=== PATIENT | female | born 1985 | race Caucasian/White ===

== ENCOUNTER 2017-12-06 10:35 | Emergency (ER) | payer OTHER ==
--- NOTE | 2017-12-06 13:49 | RAD REPORT ---
EXAM DESCRIPTION: RAD - Chest Single View - 12/06/2017 1:41 pm CLINICAL HISTORY: Cough, bronchitis history, worsening shortness of breath COMPARISON: November 24 TECHNIQUE: AP portable chest image was obtained 1335 hours . FINDINGS: No focal consolidation, mass or failure finding. Lung markings are mildly prominent but no t clearly different from the prior study. Trachea is midline. Heart and vasculature are normal. No me asurable pleural effusion and no pneumothorax. No gross bony abnormality seen. No acute aortic findin gs suspected. IMPRESSION: Patient has mild chronic interstitial changes. Current exam shows no substantial change from November 24.
[2017-12-06] MEDS ORDERED: ALBUTEROL 2.5 MG/3 ML NEB SOL ONE (14:04)
[2017-12-06] MEDS ORDERED: IPRATROPIUM BROM 0.5MG/2.5ML ONE (14:04)
--- NOTE | 2017-12-06 16:10 | ER ---
Nurse's Notes [facility] Name: Josefa Maier Age: 32 yrs Sex: Female : 1985 Arrival Date: 12/06/2017 Time: 10:40 Bed 24 Private MD: Diagnosis: Acute bronchitis, unspecified Presentation: 12/06 10:56 Presenting complaint: Patient states: i came Sunday, was told i had bronchitis; was hj Rx with inhaler, just filled it today, now my is getting worse to the point i cant breathe and im getting light headed; report chills;. Transition of care: patient was not received from another setting of care. Onset of symptoms was December 06, 2017. Care prior to arrival: None. 10:56 Method Of Arrival: Ambulatory 10:56 Acuity: DEEPIKA 4 hj Triage Assessment: 10:58 General: Appears in no apparent distress. uncomfortable, Behavior is calm, cooperative, hj appropriate for age. 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 - Family history:: not pertinent. - Social history:: Smoking status: Patient uses tobacco products, denies chronic smoking, but will smoke occasionally. - Hospitalizations: : No recent hospitalization is reported. - History obtained from: significant other. Screenin:40 Abuse screen: Denies threats or abuse. Nutritional screening: No deficits noted. tl3 Tuberculosis screening: No symptoms or risk factors identified. Fall Risk None identified. Assessment: 13:40 General: Appears comfortable, well groomed, well developed, well nourished, Behavior is tl3 calm, cooperative, appropriate for age. Pain: Complains of pain in chest. Neuro: Level of Consciousness is alert, obeys commands, Oriented to person, place, time, situation, Appropriate for age. Cardiovascular: Heart tones S1 S2 present Capillary refill < 3 seconds in right in left fingers. Respiratory: Airway is patent Trachea midline Respiratory effort is even, unlabored, Breath sounds are coarse bilaterally. GI: No signs and/or symptoms were reported involving the gastrointestinal system. : No signs and/or symptoms were reported regarding the genitourinary system. EENT: Derm: No signs and/or symptoms reported regarding the dermatologic system. Musculoskeletal: No signs and/or symptoms reported regarding the musculoskeletal system. 15:20 Reassessment: Patient and/or family updated on plan of care and expected duration. Pain tl3 level reassessed. Patient is alert, oriented x 3, equal unlabored respirations, skin warm/dry/pink. Patient states symptoms have improved. fine expiratory wheeze to right side. 16:42 Reassessment: Patient appears in no apparent distress at this time. No changes from tl3 previously documented assessment. Patient and/or family updated on plan of care and expected duration. Pain level reassessed. Patient is alert, oriented x 3, equal unlabored respirations, skin warm/dry/pink. Vital Signs: 10:59 BP 102 / 70; Pulse 85; Resp 18; Temp 97.6(TE); Pulse Ox 94% on R/A; Weight 82.55 kg; hj Height 5 ft. 1 in. (154.94 cm); 13:40 BP 125 / 67; Pulse 95; Resp 18; Pulse Ox 96% ; tl3 15:20 BP 99 / 61; Pulse 86; Resp 18; Pulse Ox 98% ; tl3 16:42 BP 118 / 74; Pulse 68; Resp 16; Pulse Ox 97% on R/A; tl3 10:59 Body Mass Index 34.39 (82.55 kg, 154.94 cm) ED Course: 10:40 Patient arrived in ED. mr 10:58 Triage completed. hj 10:59 Arm band placed on right wrist. hj 13:03 Loraine Park FNP is PHCP. kav 13:03 Alberto Yoo MD is Attending Physician. kav 13:04 Toya Shearer, BECKI is Primary Nurse. tl3 13:40 Resting quietly. tl3 13:40 Patient has correct armband on for positive identification. Bed in low position. Call tl3 light in reach. Side rails up X 1. Pulse ox on. NIBP on. 13:40 No provider procedures requiring assistance completed. Patient did not have IV access tl3 during this emergency room visit. 13:43 CXR XRAY Sent. tl3 Administered Medications: 13:49 Drug: DuoNeb (3:1) (2.5 mg - 0.5 mg) 3 ml Route: Nebulizer; tl3 15:22 Follow up: Response: No adverse reaction; cough is more productive, fine expiratory tl3 wheeze noted to right side Intake: Outcome: 16:09 Discharge ordered by MD. hernandez 16:42 Discharged to home ambulatory. tl3 16:42 Condition: stable 16:42 Discharge instructions given to patient, Instructed on discharge instructions, follow up and referral plans. medication usage, Demonstrated understanding of instructions, follow-up care, medications, Prescriptions given X 2. 16:44 Patient left the ED. tl3 Signatures: Loraine Park FNP FNP kav Rivera, Maria mr Joaquin, Henry RN RN Toya Espana RN RN tl3 Corrections: (The following items were deleted from the chart) 11:01 10:56 Acuity: DEEPIKA 4 hj hj 11:01 10:59 Pulse 85bpm; Resp 18bpm; Pulse Ox 94% RA; Temp 97.6F Temporal; 82.55 kg; Height 5 hj ft. 1 in.; BMI: 34.3; hj 11:10 10:56 Acuity: DEEPIKA 3 hj hj
--- NOTE | 2017-12-06 16:10 | EDPHYS ---
Physician Documentation [facility] Name: Josefa Maier Age: 32 yrs Sex: Female : 1985 Arrival Date: 12/06/2017 Time: 10:40 Bed 24 Private MD: ED Physician Alberto Yoo HPI: 12/06 13:06 This 32 yrs old Female presents to ER via Ambulatory with complaints of Cough.kav 13:26 The patient or guardian reports cough, that is intermittent, described as moderate, kav with no sputum. Onset: The symptoms/episode began/occurred acutely, 6 day(s) ago. Severity of symptoms: At their worst the symptoms were moderate, just prior to arrival. Modifying factors: The symptoms are alleviated by inhaler, albuterol, the symptoms are aggravated by smoke. Associated signs and symptoms: The patient has no apparent associated signs or symptoms. The patient has experienced a previous episode, approximately 6 days ago. The patient has been recently seen at the [facility] Emergency Department, this week, for similar complaints. seen in this er approx 6 days ago for similar symptoms. given rx: albuterol inhaler. patient reports that "...she did not get her inhaler filled until today". she reports that her pcp had also given her an rx: albuterol inhaler and that she "...used the whole inhaler in 2 days because she had a bad cough". current every day smoker. 13:29 The patient has experienced a previous episode. The patient has been recently seen at critical access hospital the [facility] Emergency Department, for similar complaints X-rays were performed. 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 - Family history:: not pertinent. - Social history:: Smoking status: Patient uses tobacco products, denies chronic smoking, but will smoke occasionally. - Hospitalizations: : No recent hospitalization is reported. - History obtained from: significant other. ROS: 13:29 Constitutional: Negative for fever, chills, and weight loss, Eyes: Negative for injury, kav pain, redness, and discharge, ENT: Negative for injury, pain, and discharge, Neck: Negative for injury, pain, and swelling, Cardiovascular: Negative for chest pain, palpitations, and edema, Abdomen/GI: Negative for abdominal pain, nausea, vomiting, diarrhea, and constipation, Back: Negative for injury and pain, : Negative for injury, bleeding, discharge, and swelling, MS/Extremity: Negative for injury and deformity, Skin: Negative for injury, rash, and discoloration, Neuro: Negative for headache, weakness, numbness, tingling, and seizure, Psych: Negative for depression, anxiety, suicide ideation, homicidal ideation, and hallucinations, Allergy/Immunology: Negative for hives, rash, and allergies, Endocrine: Negative for neck swelling, polydipsia, polyuria, polyphagia, and marked weight changes, Hematologic/Lymphatic: Negative for swollen nodes, abnormal bleeding, and unusual bruising. 13:29 Respiratory: Positive for cough, with no reported sputum, wheezing. Exam: 13:29 Constitutional: This is a well developed, well nourished patient who is awake, alert, kav and in no acute distress. Head/Face: Normocephalic, atraumatic. Eyes: Pupils equal round and reactive to light, extra-ocular motions intact. Lids and lashes normal. Conjunctiva and sclera are non-icteric and not injected. Cornea within normal limits. Periorbital areas with no swelling, redness, or edema. ENT: Nares patent. No nasal discharge, no septal abnormalities noted. Tympanic membranes are normal and external auditory canals are clear. Oropharynx with no redness, swelling, or masses, exudates, or evidence of obstruction, uvula midline. Mucous membranes moist. Neck: Trachea midline, no thyromegaly or masses palpated, and no cervical lymphadenopathy. Supple, full range of motion without nuchal rigidity, or vertebral point tenderness. No Meningismus. Chest/axilla: Normal chest wall appearance and motion. Nontender with no deformity. No lesions are appreciated. Cardiovascular: Regular rate and rhythm with a normal S1 and S2. No gallops, murmurs, or rubs. Normal PMI, no JVD. No pulse deficits. Abdomen/GI: Soft, non-tender, with normal bowel sounds. No distension or tympany. No guarding or rebound. No evidence of tenderness throughout. Back: No spinal tenderness. No costovertebral tenderness. Full range of motion. Skin: Warm, dry with normal turgor. Normal color with no rashes, no lesions, and no evidence of cellulitis. MS/ Extremity: Pulses equal, no cyanosis. Neurovascular intact. Full, normal range of motion. Neuro: Awake and alert, GCS 15, oriented to person, place, time, and situation. Cranial nerves II-XII grossly intact. Motor strength 5/5 in all extremities. Sensory grossly intact. Cerebellar exam normal. Normal gait. Psych: Awake, alert, with orientation to person, place and time. Behavior, mood, and affect are within normal limits. 13:29 Respiratory: the patient does not display signs of respiratory distress, Respirations: normal, Breath sounds: wheezing: expiratory that is mild, is scattered. Vital Signs: 10:59 BP 102 / 70; Pulse 85; Resp 18; Temp 97.6(TE); Pulse Ox 94% on R/A; Weight 82.55 kg; hj Height 5 ft. 1 in. (154.94 cm); 13:40 BP 125 / 67; Pulse 95; Resp 18; Pulse Ox 96% ; tl3 15:20 BP 99 / 61; Pulse 86; Resp 18; Pulse Ox 98% ; tl3 16:42 BP 118 / 74; Pulse 68; Resp 16; Pulse Ox 97% on R/A; tl3 10:59 Body Mass Index 34.39 (82.55 kg, 154.94 cm) MDM: 13:03 Patient medically screened. kav 16:08 Data reviewed: vital signs, nurses notes, radiologic studies. ED course: improvement kav with breathing after duoneb treatment. 12/06 13:25 Order name: CXR XRAY kav 12/06 13:50 Order name: RAD; Complete Time: 16:24 EDMS 12/06 16:24 Interpretation: No acute disease. kav Administered Medications: 13:49 Drug: DuoNeb (3:1) (2.5 mg - 0.5 mg) 3 ml Route: Nebulizer; tl3 15:22 Follow up: Response: No adverse reaction; cough is more productive, fine expiratory tl3 wheeze noted to right side Disposition: 21:39 Co-signature as Attending Physician, Alberto Yoo MD I agree with the assessment and kdr plan of care. Disposition: 12/06/17 16:09 Discharged to Home. Impression: Acute bronchitis, unspecified. - Condition is Stable. - Discharge Instructions: Acute Bronchitis, [id number]. - Prescriptions for Zithromax Z- Nic 250 mg Oral Tablet - take 1 tablet by ORAL route as directed for 5 days Day 1 - take two (2) tablets one time. Day 2, 3, 4 , 5 take one (1) tablet once daily.; 6 tablet. Medrol (Nic) 4 mg Oral Tablets, Dose Pack - take 1 tablet by ORAL route as directed - follow package instructions; 1 packet. - Medication Reconciliation Form, Thank You Letter, Antibiotic Education, Prescription Opioid Use form. - Follow up: Private Physician; When: 1 - 2 days; Reason: If symptoms return. - Problem is new. - Symptoms have improved. - Notes: please pick up driver your prescription and take the medication as directed follow- up with pulmonology Signatures: Dispatcher [employer] [facility] Alberto Yoo MD MD kdr Vern, Katherine, SPECIAL EQUIPMENT TECHNICIAN SPECIAL EQUIPMENT TECHNICIAN Aayush Singh, RN RN Toya Shearer, RN RN tl3
[2017-12-06 16:48] VITALS: TEMP 97.6
[2017-12-06 16:52] VITALS: BP 118/74; O2SAT 97
== END 2017-12-06 16:44 | disposition home or self-care (01) ==
LOC: ER 10:35
DX: F41.8 Other specified anxiety disorders; J20.9 Acute bronchitis, unspecified
CPT/HCPCS: 71045; 94640; 99284

== ENCOUNTER 2018-01-29 19:48 | Emergency (ER) | payer OTHER ==
[2018-01-29] MEDS ORDERED: KETOROLAC 30 MG/ML INJ ONE (21:19)
[2018-01-29] MEDS ORDERED: ONDANSETRON 4 MG (ODT) TAB ONE (21:19)
--- NOTE | 2018-01-29 21:32 | ER ---
Nurse's Notes [facility] Name: Josefa Maier Age: 32 yrs Sex: Female : 1985 Arrival Date: 01/29/2018 Time: 19:52 Bed 4 Private MD: Diagnosis: Headache Presentation: 01/29 20:08 Presenting complaint: Patient states: headache X2 days with nausea. Transition of care: ak1 patient was not received from another setting of care. Onset of symptoms was January 28, 2018. Initial Sepsis Screen: Does the patient meet any 2 criteria? No. Patient's initial sepsis screen is negative. Does the patient have a suspected source of infection? No. Patient's initial sepsis screen is negative. Care prior to arrival: None. 20:08 Method Of Arrival: Ambulatory ak1 20:08 Acuity: DEEPIKA 4 ak1 Triage Assessment: 20:09 Neuro: Level of Consciousness is awake, alert, obeys commands, Oriented to person, ak1 place, time, situation, Cabin Crew are equal bilaterally Moves all extremities. Gait is steady, Speech is normal, Facial symmetry appears normal. 20:34 Pain: Pain at worst was 10 out of 10 on a pain scale. Also complains of nausea. jd3 20:34 Headache History: Denies prior headaches. General: Appears in no apparent distress. jd3 uncomfortable, Behavior is calm, cooperative, appropriate for age. 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 - Social history:: Smoking status: Patient uses tobacco products, smokes one-half pack cigarettes per day. Screenin:34 Abuse screen: Denies threats or abuse. Nutritional screening: No deficits noted. jd3 Tuberculosis screening: No symptoms or risk factors identified. Fall Risk None identified. Assessment: 20:30 General: Appears in no apparent distress. uncomfortable, Behavior is calm, cooperative, jd3 appropriate for age. Pain: Complains of pain in head and back Quality of pain is described as aching, pressure, Pain began 2-3 days ago. Neuro: Level of Consciousness is awake, alert, obeys commands, Oriented to person, place, time, situation, Moves all extremities. Gait is steady, Speech is normal, Pupils are PERRLA. Cardiovascular: Heart tones S1 S2 present Capillary refill < 3 seconds Patient's skin is warm and dry. Respiratory: Airway is patent Respiratory effort is even, unlabored, Respiratory pattern is regular, symmetrical, Breath sounds are clear bilaterally. GI: Abdomen is round Bowel sounds present X 4 quads. Abd is soft and non tender X 4 quads. : No signs and/or symptoms were reported regarding the genitourinary system. EENT: No signs and/or symptoms were reported regarding the EENT system. Derm: Skin is intact, Skin is dry, Skin is normal, Skin temperature is warm. Musculoskeletal: Circulation, motion, and sensation intact. Range of motion: intact in all extremities. 21:57 Reassessment: Patient appears in no apparent distress at this time. Patient and/or jd3 family updated on plan of care and expected duration. Pain level reassessed. Patient is alert, oriented x 3, equal unlabored respirations, skin warm/dry/pink. pt reported understanding of discharge instructions, even and steady gait upon discharge. Patient states feeling better. Vital Signs: 20:09 BP 128 / 79; Pulse 91; Resp 16; Temp 98.2; Pulse Ox 96% on R/A; Weight 83.46 kg (R); ak1 Height 5 ft. 1 in. (154.94 cm) (R); Pain 10/10; 21:56 BP 129 / 97; Pulse 98; Resp 17 S; Pulse Ox 97% on R/A; Pain 5/10; jd3 20:09 Body Mass Index 34.77 (83.46 kg, 154.94 cm) ak1 ED Course: 19:52 Patient arrived in ED. es 20:08 Triage completed. ak1 20:09 Arm band placed on Patient placed in an exam room, on a stretcher, Patient notified of ak1 wait time. 20:12 Americo Serna RN is Primary Nurse. mg2 20:23 Enrique Hobbs MD is Attending Physician. gs 20:30 Primary Nurse role handed off by Americo Serna RN jd3 20:30 Yonathan Lowry, RN is Primary Nurse. jd3 20:34 Patient has correct armband on for positive identification. Bed in low position. Call jd3 light in reach. Side rails up X2. 21:32 Uriel Marie MD is Referral Physician. 21:55 No provider procedures requiring assistance completed. Patient did not have IV access jd3 during this emergency room visit. Administered Medications: 21:24 Drug: Zofran 4 mg Route: PO; mg2 21:58 Follow up: Response: No adverse reaction; Nausea is decreased jd3 21:25 Drug: TORadol 30 mg Route: IM; Site: left gluteus; mg2 21:58 Follow up: Response: Pain is decreased jd3 Outcome: 21:32 Discharge ordered by . 21:55 Discharged to home ambulatory, with family. jd3 21:55 Condition: stable 21:55 Discharge instructions given to patient, family, Instructed on discharge instructions, follow up and referral plans. medication usage, Demonstrated understanding of instructions, follow-up care, medications, Prescriptions given X 1. 21:58 Patient left the ED. jd3 Signatures: Leticia Howe Amber RN RN ak1 Enrique Hobbs MD MD Yonathan Lowry RN RN jd3 Americo Serna RN RN mg2 Corrections: (The following items were deleted from the chart) 20:35 20:34 Pain: Pain jd3 jd3
--- NOTE | 2018-01-29 21:33 | EDPHYS ---
Physician Documentation [facility] Name: Josefa Maier Age: 32 yrs Sex: Female : 1985 Arrival Date: 01/29/2018 Time: 19:52 Bed 4 Private MD: ED Physician Enrique Hobbs HPI: 01/29 21:30 This 32 yrs old Female presents to ER via Ambulatory with complaints of gs Headache, Nausea. 21:30 The patient complains of pain to the forehead. The patient describes the headache as gs throbbing. Onset: The symptoms/episode began/occurred 2 day(s) ago. Associated signs and symptoms: Pertinent positives: nausea, Pertinent negatives: altered mental status. Severity of symptoms: At its worst the pain was moderate, in the emergency department the pain has improved, markedly. Headache History: The patient has had previous headaches and this one is similar to previous episodes, and this one is less severe than previous episodes. The symptoms are alleviated by nothing. the symptoms are aggravated by nothing. The patient has experienced similar episodes in the past, a few times. The patient has not recently seen a physician. 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 - Social history:: Smoking status: Patient uses tobacco products, smokes one-half pack cigarettes per day. ROS: 21:30 All other systems are negative. gs Exam: 21:30 Head/Face: Normocephalic, atraumatic. Eyes: Pupils equal round and reactive to light, gs extra-ocular motions intact. Lids and lashes normal. Conjunctiva and sclera are non-icteric and not injected. Cornea within normal limits. Periorbital areas with no swelling, redness, or edema. ENT: Nares patent. No nasal discharge, no septal abnormalities noted. Tympanic membranes are normal and external auditory canals are clear. Oropharynx with no redness, swelling, or masses, exudates, or evidence of obstruction, uvula midline. Mucous membranes moist. Neck: Trachea midline, no thyromegaly or masses palpated, and no cervical lymphadenopathy. Supple, full range of motion without nuchal rigidity, or vertebral point tenderness. No Meningismus. Chest/axilla: Normal chest wall appearance and motion. Nontender with no deformity. No lesions are appreciated. Cardiovascular: Regular rate and rhythm with a normal S1 and S2. No gallops, murmurs, or rubs. Normal PMI, no JVD. No pulse deficits. Respiratory: Lungs have equal breath sounds bilaterally, clear to auscultation and percussion. No rales, rhonchi or wheezes noted. No increased work of breathing, no retractions or nasal flaring. Abdomen/GI: Soft, non-tender, with normal bowel sounds. No distension or tympany. No guarding or rebound. No evidence of tenderness throughout. Back: No spinal tenderness. No costovertebral tenderness. Full range of motion. Skin: Warm, dry with normal turgor. Normal color with no rashes, no lesions, and no evidence of cellulitis. MS/ Extremity: Pulses equal, no cyanosis. Neurovascular intact. Full, normal range of motion. Neuro: Awake and alert, GCS 15, oriented to person, place, time, and situation. Cranial nerves II-XII grossly intact. Motor strength 5/5 in all extremities. Sensory grossly intact. Cerebellar exam normal. Normal gait. 21:30 Constitutional: The patient appears alert, awake. Vital Signs: 20:09 BP 128 / 79; Pulse 91; Resp 16; Temp 98.2; Pulse Ox 96% on R/A; Weight 83.46 kg (R); ak1 Height 5 ft. 1 in. (154.94 cm) (R); Pain 10/10; 21:56 BP 129 / 97; Pulse 98; Resp 17 S; Pulse Ox 97% on R/A; Pain 5/10; jd3 20:09 Body Mass Index 34.77 (83.46 kg, 154.94 cm) ak1 MDM: 20:45 Patient medically screened. 21:30 Differential diagnosis: migraine, tension headache, vasomotor headache. Data reviewed: vital signs, nurses notes. Response to treatment: the patient's symptoms have markedly improved after treatment, the patient's symptoms have resolved after treatment, and as a result, I will discharge patient. Administered Medications: 21:24 Drug: Zofran 4 mg Route: PO; mg2 21:58 Follow up: Response: No adverse reaction; Nausea is decreased jd3 21:25 Drug: TORadol 30 mg Route: IM; Site: left gluteus; mg2 21:58 Follow up: Response: Pain is decreased jd3 Disposition: 01/29/18 21:32 Discharged to Home. Impression: Headache. - Condition is Stable. - Discharge Instructions: General Headache Without Cause. - Prescriptions for Zofran 4 mg Oral Tablet - take 1 tablet by ORAL route every 12 hours As needed; 6 tablet. - Medication Reconciliation Form, Thank You Letter, Antibiotic Education, Prescription Opioid Use form. - Follow up: Private Physician; When: 2 - 3 days; Reason: Recheck today's complaints, Re-evaluation by your physician. Follow up: Uriel Marie MD; When: 2 - 3 days; Reason: Re-evaluation by your physician. Signatures: Estefania Sam RN RN ak1 Enrique Hobbs MD MD gs Yonathan Lowry RN RN jd3 Americo Serna RN RN mg2 Corrections: (The following items were deleted from the chart) 21:58 21:32 01/29/2018 21:32 Discharged to Home. Impression: Headache. Condition is Stable. jd3 Forms are Medication Reconciliation Form, Thank You Letter, Antibiotic Education, Prescription Opioid Use. Follow up: Private Physician; When: 2 - 3 days; Reason: Recheck today's complaints, Re-evaluation by your physician. Follow up: Uriel Marie; When: 2 - 3 days; Reason: Re-evaluation by your physician.
[2018-01-29 22:12] VITALS: BP 129/97; O2SAT 97
[2018-01-29 22:14] VITALS: TEMP 98.2
== END 2018-01-29 21:58 | disposition home or self-care (01) ==
LOC: ER 19:48
DX: R51 Headache (principal); F17.210 Nicotine dependence, cigarettes, uncomplicated; F41.9 Anxiety disorder, unspecified; F32.9 Major depressive disorder, single episode, unspecified
CPT/HCPCS: 96372; 99283

== ENCOUNTER 2018-03-05 15:11 | Emergency (ER) | payer OTHER ==
--- NOTE | 2018-03-05 16:11 | RAD REPORT ---
EXAM DESCRIPTION: RAD - Hand Right 3 View - 03/05/2018 4:06 pm CLINICAL HISTORY: Right hand pain following blunt force trauma COMPARISON: None. FINDINGS: No fracture is identified. There is no dislocation or periosteal reaction noted. No forei gn body or other soft tissue abnormality. IMPRESSION: Negative right hand examination.
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
[2018-03-05 17:32] VITALS: BP 123/59; TEMP 97.9; O2SAT 99
== END 2018-03-05 16:57 | disposition home or self-care (01) ==
LOC: ER 15:11
DX: S60.221A Contusion of right hand, initial encounter (principal); J45.909 Unspecified asthma, uncomplicated; E78.5 Hyperlipidemia, unspecified; W22.01XA Walked into wall, initial encounter; Y93.89 Activity, other specified; Y92.9 Unspecified place or not applicable; Y99.9 Unspecified external cause status
CPT/HCPCS: 99283

== ENCOUNTER 2018-07-02 15:42 | Emergency (ER) | payer OTHER ==
[2018-07-02] MEDS ORDERED: LIDOCAINE 1% MPF 30 ML VIAL ONE (16:17)
[2018-07-02] MEDS ORDERED: LIDOCAINE 1% MPF 2 ML AMPULE ONE (16:20)
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
[2018-07-02 17:09] VITALS: BP 137/69
== END 2018-07-02 16:54 | disposition home or self-care (01) ==
LOC: ER 15:42
PROC: 0JQ10ZZ Repair Face Subcutaneous Tissue and Fascia, Open Approach (ICD-10-PCS; principal; 2018-07-02)
DX: S01.81XA Laceration without foreign body of other part of head, initial encounter (principal); Y04.8XXA Assault by other bodily force, initial encounter; Y93.89 Activity, other specified; Y92.9 Unspecified place or not applicable; F31.9 Bipolar disorder, unspecified; F41.9 Anxiety disorder, unspecified; F32.9 Major depressive disorder, single episode, unspecified
CPT/HCPCS: 99284; J2001

== ENCOUNTER 2018-07-08 12:54 | Emergency (ER) | payer OTHER ==
--- NOTE | 2018-07-08 13:21 | ER ---
Nurse's Notes [facility] Name: Josefa Maier Age: 33 yrs Sex: Female : 1985 Arrival Date: 07/08/2018 Time: 12:58 Bed 24 Private MD: BRISEIDA GUZMAN Diagnosis: Encounter for removal of sutures Presentation: 07/08 13:01 Presenting complaint: Patient states: Needs sutures removed. Pt reports she has sutures aa5 placed here on Sunday. Transition of care: patient was not received from another setting of care. Onset of symptoms was June 2018. Risk Assessment: Do you want to hurt yourself or someone else? Patient reports no desire to harm self or others. Initial Sepsis Screen: Does the patient meet any 2 criteria? No. Patient's initial sepsis screen is negative. Does the patient have a suspected source of infection? No. Patient's initial sepsis screen is negative. Care prior to arrival: None. 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 - Social history:: Smoking status: Patient/guardian denies using tobacco. - Ebola Screening: : No symptoms or risks identified at this time. Screenin:12 Abuse screen: Denies threats or abuse. Denies injuries from another. Nutritional ss screening: No deficits noted. Tuberculosis screening: Never had TB. Fall Risk None identified. Assessment: 13:12 General: Appears in no apparent distress. comfortable, Behavior is calm, cooperative, ss Denies fever, feeling ill, fatigue, chills. Pain: Denies pain. Neuro: Level of Consciousness is awake, alert, obeys commands, Oriented to person, place, time, situation. Respiratory: Airway is patent Respiratory effort is even, unlabored, Respiratory pattern is regular, symmetrical. GI: No signs and/or symptoms were reported involving the gastrointestinal system. Derm: Skin is pink, warm \T\ dry. 5 sutures noted to R medial aspect of eyebrow. Edges healing well. No redness, swelling or drainage noted. Vital Signs: 13:03 BP 143 / 68; Pulse 71; Resp 16 S; Temp 97.6(TE); Pulse Ox 98% on R/A; Weight 83.46 kg aa5 (R); Height 5 ft. 1 in. (154.94 cm) (R); 13:03 Body Mass Index 34.77 (83.46 kg, 154.94 cm) aa ED Course: 12:58 Patient arrived in ED. mr 12:59 BRISEIDA GUZMAN is Private Physician. mr 13:00 [facility] Balderr[facility]C [facility]. snw 13:00 Juaquin Bundy MD is Attending Physician. snw 13:03 Triage completed. aa5 13:03 Arm band placed on. aa5 13:12 Carmen He RN is Primary Nurse. ss 13:12 Patient has correct armband on for positive identification. Bed in low position. Call ss light in reach. Side rails up X 1. 13:14 No provider procedures requiring assistance completed. Patient did not have IV access ss during this emergency room visit. Removal of Removed sutures from inner aspect of right eyebrow Suture site is well healed Patient tolerated well. 13:20 BRISEIDA GUZMAN is Referral Physician. snw Administered Medications: No medications were administered Outcome: 13:14 Condition: good ss 13:14 Discharge instructions given to patient, family, Instructed on discharge instructions, follow up and referral plans. wound care. 13:21 Discharge ordered by . snw 13:35 Discharged to home ambulatory, with family. ss 13:36 Patient left the ED. ss Signatures: Jalyn Balderrama FNP-C FNP-Philomena Rosey DawsonAna RN RN aa Carmen He RN RN ss
--- NOTE | 2018-07-08 13:21 | EDPHYS ---
Physician Documentation [facility] Name: Josefa Maier Age: 33 yrs Sex: Female : 1985 Arrival Date: 07/08/2018 Time: 12:58 Bed 24 Private MD: BRISEIDA GUZMAN ED Physician Juaquin Bundy HPI: 07/08 13:50 This 33 yrs old Female presents to ER via Ambulatory with complaints of snw Suture Removal. 13:50 The patient has sutures on the inner aspect of right eyebrow. Previous treatment: snw Treatment type: The patient's original treatment included sutures. Sutures/maria antonia progress: The patient has no c/o's. The wound is well-healing with no redness, swelling, discharge, or dehiscence reported. The patient has not experienced similar symptoms in the past. The patient has been recently seen at the [facility] Emergency Department, last week. no fever. 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 - Social history:: Smoking status: Patient/guardian denies using tobacco. - Ebola Screening: : No symptoms or risks identified at this time. ROS: 13:48 Constitutional: Negative for fever, chills, and weight loss, Eyes: Negative for injury, snw pain, redness, and discharge, ENT: Negative for injury, pain, and discharge, Neck: Negative for injury, pain, and swelling, Cardiovascular: Negative for chest pain, palpitations, and edema, Respiratory: Negative for shortness of breath, cough, wheezing, and pleuritic chest pain, Abdomen/GI: Negative for abdominal pain, nausea, vomiting, diarrhea, and constipation, Back: Negative for injury and pain, : Negative for injury, bleeding, discharge, and swelling, MS/Extremity: Negative for injury and deformity, Neuro: Negative for headache, weakness, numbness, tingling, and seizure, Psych: Negative for depression, anxiety, suicide ideation, homicidal ideation, and hallucinations. 13:48 Skin: Positive for need for suture removal. Exam: 13:48 Constitutional: This is a well developed, well nourished patient who is awake, alert, snw and in no acute distress. Eyes: Pupils equal round and reactive to light, extra-ocular motions intact. Lids and lashes normal. Conjunctiva and sclera are non-icteric and not injected. Cornea within normal limits. Periorbital areas with no swelling, redness, or edema. ENT: Nares patent. No nasal discharge, no septal abnormalities noted. Tympanic membranes are normal and external auditory canals are clear. Oropharynx with no redness, swelling, or masses, exudates, or evidence of obstruction, uvula midline. Mucous membranes moist. Neck: Trachea midline, no thyromegaly or masses palpated, and no cervical lymphadenopathy. Supple, full range of motion without nuchal rigidity, or vertebral point tenderness. No Meningismus. Chest/axilla: Normal chest wall appearance and motion. Nontender with no deformity. No lesions are appreciated. Cardiovascular: Regular rate and rhythm with a normal S1 and S2. No gallops, murmurs, or rubs. Normal PMI, no JVD. No pulse deficits. Respiratory: Lungs have equal breath sounds bilaterally, clear to auscultation and percussion. No rales, rhonchi or wheezes noted. No increased work of breathing, no retractions or nasal flaring. Abdomen/GI: Soft, non-tender, with normal bowel sounds. No distension or tympany. No guarding or rebound. No evidence of tenderness throughout. Back: No spinal tenderness. No costovertebral tenderness. Full range of motion. Skin: Warm, dry with normal turgor. Normal color with no rashes, no lesions, and no evidence of cellulitis. MS/ Extremity: Pulses equal, no cyanosis. Neurovascular intact. Full, normal range of motion. Neuro: Awake and alert, GCS 15, oriented to person, place, time, and situation. Cranial nerves II-XII grossly intact. Motor strength 5/5 in all extremities. Sensory grossly intact. Cerebellar exam normal. Normal gait. Psych: Awake, alert, with orientation to person, place and time. Behavior, mood, and affect are within normal limits. 13:48 Head/face: Noted is no obvious of injury or deformity except intact sutures over well approximated laceration without evidence of infection, mild ecchymosis to right upper eyelid. Vital Signs: 13:03 BP 143 / 68; Pulse 71; Resp 16 S; Temp 97.6(TE); Pulse Ox 98% on R/A; Weight 83.46 kg aa5 (R); Height 5 ft. 1 in. (154.94 cm) (R); 13:03 Body Mass Index 34.77 (83.46 kg, 154.94 cm) aa5 MDM: 13:19 Patient medically screened. [facility] 13:50 Data reviewed: vital signs, nurses notes. Data interpreted: Pulse oximetry: on room air snw is 98 %. Interpretation: normal. Counseling: I had a detailed discussion with the patient and/or guardian regarding: the historical points, exam findings, and any diagnostic results supporting the discharge/admit diagnosis, the presence of at least one elevated blood pressure reading (>120/80) during this emergency department visit, the need for outpatient follow up, to return to the emergency department if symptoms worsen or persist or if there are any questions or concerns that arise at home. Special discussion: Based on the patient's history, exam and DX evaluation, there is no indication for emergent intervention or inpatient TX. It is understood by the patient/guardian that if the SXs persist or worsen they need to return immediately for re-evaluation. Based on the history and exam findings, there is no indication for further emergent testing or inpatient evaluation. I discussed with the patient/guardian the need to see the primary care provider for further evaluation of the symptoms. Administered Medications: No medications were administered Disposition: 17:56 Co-signature as Attending Physician, Juaquin Bundy MD I agree with the assessment and [facility] plan of care. Disposition: 07/08/18 13:21 Discharged to Home. Impression: Encounter for removal of sutures. - Condition is Stable. - Discharge Instructions: Hypertension, Suture Removal, Care After, Incision Care, Adult. - Medication Reconciliation Form, Thank You Letter, Antibiotic Education, Prescription Opioid Use form. - Follow up: BRISEIDA GUZMAN; When: 1 week; Reason: Recheck today's complaints, Continuance of care, Re-evaluation by your physician. Signatures: Juaquin Bundy MD MD cha Therrien, Shelly, MANAGER APPLICATION DEVELOPMENT-C MANAGER APPLICATION DEVELOPMENT-Csnw Ana Calix RN RN aa5 Carmen He RN RN ss Corrections: (The following items were deleted from the chart) 13:36 13:21 07/08/2018 13:21 Discharged to Home. Impression: Encounter for removal of ss sutures. Condition is Stable. Forms are Medication Reconciliation Form, Thank You Letter, Antibiotic Education, Prescription Opioid Use. Follow up: BRISEIDA GUZMAN; When: 1 week; Reason: Recheck today's complaints, Continuance of care, Re-evaluation by your physician. snw
[2018-07-08 13:47] VITALS: BP 143/68; TEMP 97.6; O2SAT 98
== END 2018-07-08 13:36 | disposition home or self-care (01) ==
LOC: ER 12:54
DX: Z48.02 Encounter for removal of sutures (principal)
CPT/HCPCS: 99281

== ENCOUNTER 2018-09-04 23:36 | Emergency (ER) | payer OTHER ==
[2018-09-05 01:04] LABS: Absolute Monocytes 0.4 K/uL (0.1-1.3); Absolute Neutrophil 4.1 K/uL (1.8-8.0); Basophils % 0.6 % (0-1.3); Eosinophils % 3.5 % (0-4.4); Hematocrit 40.8 % (36.0-45.0); Lymphocytes % 29.5 % (15.3-44.8); MPV 9.5 fL (7.6-11.3); Monocytes % 6.6 % (3.3-12.3); RBC Red Blood Cell Count 4.63 M/uL (3.86-4.86)
[2018-09-05] MEDS ORDERED: NA CHLORIDE 0.9% 500 ML ONE (01:11)
[2018-09-05] MEDS ORDERED: MAGNE/ALUM HYDROXD 30 ML UCUP ONE (01:11)
[2018-09-05] MEDS ORDERED: LIDOCAINE VISCOUS 2% SOLN 15 ML UDC ONE (01:11)
[2018-09-05] MEDS ORDERED: ONDANSETRON 4 MG/2 ML VIAL ONE (01:11)
[2018-09-05 01:24] LABS: ALT/SGPT 26 U/L (12-78); AST/SGOT 17 U/L (15-37); Albumin 3.7 g/dL (3.4-5.0); Alkaline Phosphatase 52 U/L (45-117); BUN Blood Urea Nitrogen 10 mg/dL (7-18); Bicarbonate 22 mmol/L (21-32); Bilirubin Direct < 0.1 mg/dL (0-0.2); Bilirubin Total 0.2 mg/dL (0.2-1.0); Glucose Level 95 mg/dL (74-106); Lipase 71 U/L (73-393); Potassium 3.8 mmol/L (3.5-5.1); Protein, Total 7.5 g/dL (6.4-8.2); Sodium Level 141 mmol/L (136-145)
--- NOTE | 2018-09-05 01:59 | EDPHYS ---
Physician Documentation [facility] Name: Josefa Maier Age: 33 yrs Sex: Female : 1985 Arrival Date: 09/04/2018 Time: 23:40 Bed 6 Private MD: ED Physician Juaquin Bundy HPI: 09/05 01:56 This 33 yrs old Female presents to ER via EMS with complaints of Gerd, jr8 nausea, diarrhea. 01:56 The patient presents to the emergency department with nausea, diarrhea. Onset: The jr8 symptoms/episode began/occurred gradually, 2 day(s) ago. Possible causes: unknown. The symptoms are aggravated by nothing. The symptoms are alleviated by nothing. Associated signs and symptoms: Pertinent positives: acid reflux. Severity of symptoms: At their worst the symptoms were moderate in the emergency department the symptoms are unchanged. The patient has not experienced similar symptoms in the past. The patient has not recently seen a physician. Historical: - Allergies: 09/04 23:52 NKA; rv - Home Meds: 23:52 fluoxetine 40 mg Oral cap [Active]; Singulair Oral [Active]; Xanax 1 mg Oral tab rv [Active]; Zyrtec Oral [Active]; - PMHx: 23:52 Anxiety; Asthma; Bipolar disorder; Depression; Hyperlipidemia; rv - Immunization history:: Adult Immunizations not up to date. - Social history:: Smoking status: Patient uses tobacco products, denies chronic smoking, but will smoke occasionally. - Ebola Screening: : Patient negative for fever greater than or equal to 101.5 degrees Fahrenheit, and additional compatible Ebola Virus Disease symptoms Patient denies exposure to infectious person Patient denies travel to an Ebola-affected area in the 21 days before illness onset. ROS: 09/05 01:56 Eyes: Negative for injury, pain, redness, and discharge, ENT: Negative for injury, jr8 pain, and discharge, Neck: Negative for injury, pain, and swelling, Cardiovascular: Negative for chest pain, palpitations, and edema, Respiratory: Negative for shortness of breath, cough, wheezing, and pleuritic chest pain, Back: Negative for injury and pain, MS/Extremity: Negative for injury and deformity, Skin: Negative for injury, rash, and discoloration, Neuro: Negative for headache, weakness, numbness, tingling, and seizure. Abdomen/GI: Positive for nausea, diarrhea, abdominal cramps, Negative for abdominal pain, vomiting, abdominal distension, anorexia, dysphagia, hematemesis, black/tarry stool, rectal pain, rectal bleeding, bowel incontinence, flatulence. Exam: 01:56 Eyes: Pupils equal round and reactive to light, extra-ocular motions intact. Lids and jr8 lashes normal. Conjunctiva and sclera are non-icteric and not injected. Cornea within normal limits. Periorbital areas with no swelling, redness, or edema. ENT: Nares patent. No nasal discharge, no septal abnormalities noted. Tympanic membranes are normal and external auditory canals are clear. Oropharynx with no redness, swelling, or masses, exudates, or evidence of obstruction, uvula midline. Mucous membranes moist. Neck: Trachea midline, no thyromegaly or masses palpated, and no cervical lymphadenopathy. Supple, full range of motion without nuchal rigidity, or vertebral point tenderness. No Meningismus. Cardiovascular: Regular rate and rhythm with a normal S1 and S2. No gallops, murmurs, or rubs. Normal PMI, no JVD. No pulse deficits. Respiratory: Lungs have equal breath sounds bilaterally, clear to auscultation and percussion. No rales, rhonchi or wheezes noted. No increased work of breathing, no retractions or nasal flaring. Abdomen/GI: Soft, non-tender, with normal bowel sounds. No distension or tympany. No guarding or rebound. No evidence of tenderness throughout. Back: No spinal tenderness. No costovertebral tenderness. Full range of motion. Skin: Warm, dry with normal turgor. Normal color with no rashes, no lesions, and no evidence of cellulitis. MS/ Extremity: Pulses equal, no cyanosis. Neurovascular intact. Full, normal range of motion. Neuro: Awake and alert, GCS 15, oriented to person, place, time, and situation. Cranial nerves II-XII grossly intact. Motor strength 5/5 in all extremities. Sensory grossly intact. Cerebellar exam normal. Normal gait. Vital Signs: 09/04 23:52 Pulse 73; Resp 16; Temp 97.8; Pulse Ox 100% on R/A; Weight 81.19 kg (R); rv 09/05 01:25 BP 116 / 66; Pulse 82; Resp 18; Pulse Ox 100% ; ea 02:14 BP 109 / 60; Pulse 90; Resp 20; Pulse Ox 100% on R/A; lp1 MDM: 00:00 Patient medically screened. jr8 01:56 Data reviewed: vital signs, nurses notes, lab test result(s), EKG. Data interpreted: jr8 Pulse oximetry: on room air is 100 %. Interpretation: normal. Counseling: I had a detailed discussion with the patient and/or guardian regarding: the historical points, exam findings, and any diagnostic results supporting the discharge/admit diagnosis, lab results, the need for outpatient follow up, a family practitioner, to return to the emergency department if symptoms worsen or persist or if there are any questions or concerns that arise at home. Response to treatment: the patient's symptoms have markedly improved after treatment, patient is well hydrated. 09/05 00:28 Order name: Basic Metabolic Panel; Complete Time: 09/05 00:28 Order name: CBC with Diff; Complete Time: 09/05 00:28 Order name: Hepatic Function; Complete Time: 09/05 00:28 Order name: Lipase; Complete Time: 09/05 00:28 Order name: IV Saline Lock; Complete Time: :09/05 00:28 Order name: Labs collected and sent; Complete Time: 09/05 00:28 Order name: EKG - Nurse/Tech; Complete Time: 01: Administered Medications: 01:00 Drug: Zofran 4 mg Route: IVP; Site: left antecubital; rv 02:16 Follow up: Response: Nausea is decreased lp1 01:00 Drug: GI Cocktail without - (Maalox Suspension 30 ml, Lidocaine Liquid 2 % 15 rv ml) Route: PO; 02:16 Follow up: Response: No adverse reaction lp1 01:17 Drug: NS 0.9% 500 ml Route: IV; Rate: bolus; Site: left antecubital; ea 02:15 Follow up: IV Status: Completed infusion; IV Intake: 500ml lp1 Disposition: 06:51 Co-signature as Attending Physician, Juaquin Bundy MD I agree with the assessment and yo plan of care. Disposition: 09/05/18 01:58 Discharged to Home. Impression: Gastritis, unspecified, Diarrhea, unspecified. - Condition is Stable. - Discharge Instructions: Food Choices to Help Relieve Diarrhea, Adult, Diarrhea, Adult. - Prescriptions for Zofran 4 mg Oral Tablet - take 1 tablet by ORAL route every 12 hours As needed; 20 tablet. Pepcid 20 mg Oral Tablet - take 1 tablet by ORAL route once daily for 10 days; 10 tablet. - Medication Reconciliation Form, Thank You Letter, Antibiotic Education, Prescription Opioid Use form. - Follow up: Private Physician; When: 5 - 6 days; Reason: Recheck today's complaints, Continuance of care, Re-evaluation by your physician. - Problem is new. - Symptoms have improved. Signatures: Dispatcher [employer] [facility] Juaquin Bundy MD MD cha Pena, Laura, RN RN lp1 Otis Healy PA PA jr8 Adela Liriano, RN RN Carlos Eduardo Matos RN RN rv Corrections: (The following items were deleted from the chart) 01:26 00:29 Creatinine for Radiology+C.LAB.BRZ ordered. [facility] 02:16 01:58 09/05/2018 01:58 Discharged to Home. Impression: Gastritis, unspecified; lp1 Diarrhea, unspecified. Condition is Stable. Forms are Medication Reconciliation Form, Thank You Letter, Antibiotic Education, Prescription Opioid Use. Follow up: Private Physician; When: 5 - 6 days; Reason: Recheck today's complaints, Continuance of care, Re-evaluation by your physician. Problem is new. Symptoms have improved. jr8
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
[2018-09-05 02:53] VITALS: TEMP 97.8; O2SAT 100
[2018-09-05 02:56] VITALS: BP 109/60
--- NOTE | 2018-09-06 07:02 | EKG ---
Test Date: 2018-09-05 Test Time: 01:19:12 Clip Bolter And Wrapper: FANNY MEASUREMENT RESULTS: Intervals: Rate: 70 OR: 132 QRSD: 68 QT: 398 QTc: 429 [place]: P: 19 OR: 132 QRS: 18 T: 14 INTERPRETIVE STATEMENTS: Normal sinus rhythm Normal ECG Compared to ECG 04/07/2016 13:07:18 No significant changes Electronically Signed On 09-06-18 06:53:35 SPOOLER by Mookie Camara
== END 2018-09-05 02:16 | disposition home or self-care (01) ==
LOC: ER 23:36
DX: K29.70 Gastritis, unspecified, without bleeding (principal); F32.9 Major depressive disorder, single episode, unspecified; E78.5 Hyperlipidemia, unspecified; Z72.0 Tobacco use
CPT/HCPCS: 36415; 80048; 80076; 83690; 85025; 93005; 96361; 96374; 99284; J2405

== ENCOUNTER 2019-07-01 23:53 | Inpatient (IN) | payer OTHER ==
[2019-07-01] MEDS ORDERED: ATROPINE SULF 1 MG/10 ML SYR IV ONE (23:57)
[2019-07-01] MEDS ORDERED: NALOXONE HCL 2 MG/2 ML VIAL ONE (23:58)
[2019-07-02] MEDS ORDERED: NA CHLORIDE 0.9% 2,000 ML ONE (00:15)
--- NOTE | 2019-07-02 00:38 | ER ---
Nurse's Notes [facility] Name: Josefa Maier Age: 34 yrs Sex: Female : 1985 Arrival Date: 07/02/2019 Time: 00:03 Bed 3 Private MD: Diagnosis: Suicide attempt;Adverse effect of predominantly alpha-adrenoreceptor agonists Presentation: 07/01 23:50 Presenting complaint: EMS states: that pt admitted to taking Tizanidine 2 mg tablets fc #30 at approx 2230. When asked here if she took them to hurt herself pt stated "yes". Transition of care: patient was not received from another setting of care. Onset of symptoms was July 01, 2019 at 22:30. Risk Assessment: Do you want to hurt yourself or someone else? Patient reports desire/thoughts of hurting themselves or someone else. Provider notified. Initial Sepsis Screen: Does the patient meet any 2 criteria? No. Patient's initial sepsis screen is negative. Does the patient have a suspected source of infection? No. Patient's initial sepsis screen is negative. Care prior to arrival: IV initiated. 18 GA, in the left antecubital area. 23:50 Method Of Arrival: EMS: [facility] 23:50 Acuity: DEEPIKA 2 fc Historical: - Allergies: 07/02 00:10 NKA; fc - Home Meds: 00:10 Singulair 10 mg oral tab 1 tab once daily [Active]; ranitidine HCl 150 mg Oral cap 1 fc cap 2 times per day [Active]; tizanidine 2 mg oral tab twice a day [Active]; - PMHx: 00:10 Depression; Bipolar disorder; GERD; Anxiety; Asthma; Hyperlipidemia; fc - Immunization history:: Adult Immunizations unknown. - Social history:: Smoking status: unknown. - Ebola Screening: : Unable to complete screening because patient is disoriented, . Screenin:11 Abuse screen: Denies threats or abuse. Nutritional screening: No deficits noted. fc Tuberculosis screening: No symptoms or risk factors identified. Assessment: 07/01 00:00 General: Appears in no apparent distress. comfortable, Behavior is listless. Pain: aa1 Unable to use pain scale. Patient is disoriented. FLACC scale score is 0 out of 10. Neuro: Level of Consciousness is obtunded, will arouse to verbal and physical stimuli and answers questions appropriately but immediately falls back asleep. Pupils are PERRLA. Cardiovascular: Heart tones S1 S2 present Rhythm is sinus bradycardia. Respiratory: Airway is patent Respiratory effort is even, unlabored, Respiratory pattern is regular, symmetrical. GI: Abdomen is non-distended, Abd is soft and non tender X 4 quads. : No signs and/or symptoms were reported regarding the genitourinary system. EENT: No signs and/or symptoms were reported regarding the EENT system. Derm: Skin is intact, is healthy with good turgor, Skin is diaphoretic, Skin is normal, Skin temperature is cool. Musculoskeletal: Capillary refill < 3 seconds. 23:58 Reassessment: Jose Francisco Boyce from [place] [facility] states that pt only need fc symptomatic and supportive care. Monitor for heart block. Given Atropine if needed. Give IVF and obtain a toxic work up. 07/02 00:39 Reassessment: Monitoring temperature. Patient was provide with warm blankets. ao 01:03 Reassessment: Patient appears in no apparent distress at this time. No changes from aa1 previously documented assessment. Patient and/or family updated on plan of care and expected duration. Pain level reassessed. Pt to be ER hold. Vital Signs: 07/01 23:50 BP 153 / 99; Pulse 40; Resp 18; Pulse Ox 100% on R/A; Weight 70.31 kg (R); Height 5 ft. fc 1 in. (154.94 cm) (R); Pain 0/10; 07/02 00:25 BP 159 / 108; Pulse 88; Resp 22; Pulse Ox 98% on R/A; aa1 00:31 Temp 95.4(C); ao 01:03 BP 141 / 93; Pulse 79; Resp 18; Temp 95.3(C); Pulse Ox 96% on R/A; Pain 0/10; aa1 07/01 23:50 Body Mass Index 29.29 (70.31 kg, 154.94 cm) fc ED Course: 07/01 23:50 Patient arrived in ED. aa1 23:50 Arm band placed on Patient placed in an exam room, on a stretcher. fc 23:50 Patient has correct armband on for positive identification. Placed in gown. Bed in low fc position. Call light in reach. Side rails up X2. tiller man on. Pulse ox on. NIBP on. 23:50 Maintain EMS IV. Dressing intact. Good blood return noted. Site clean \\T\\ dry. Gauge \\T\\ fc site: 18 gauge to left a/c. 07/02 00:00 Safety Checks: Personal items have been removed. The door is open or patient has been aa1 placed in a hallway bed/chair. There are no family/friend visitors at this time Sitter present at this time. 00:06 Otis Healy PA is PHCP. jr8 00:06 Walker Hughes MD is Attending Physician. jr8 00:08 Triage completed. fc 00:15 Safety Checks: Personal items have been removed. The door is open or patient has been aa1 placed in a hallway bed/chair. There are no family/friend visitors at this time Sitter present at this time. 00:17 Chaidez cath inserted, using sterile technique, 18 Fr., by ED staff, balloon inflated, to aa1 gravity drainage, urine specimen collected. other by Damon Madsen RN returned yao urine. Patient tolerated well. 00:18 Cristopher Sanchez is Hospitalizing Provider. jr8 00:20 Initial lab(s) drawn, by me, sent to lab. aa1 00:30 Safety Checks: Personal items have been removed. The door is open or patient has been aa1 placed in a hallway bed/chair. There are no family/friend visitors at this time. 00:40 Thermoregulation: warm blanket given to patient. aa1 00:45 Safety Checks: Personal items have been removed. The door is open or patient has been aa1 placed in a hallway bed/chair. There are no family/friend visitors at this time. 00:45 Patient admitted, IV remains in place. aa1 01:00 Safety Checks: Personal items have been removed. The door is open or patient has been ao placed in a hallway bed/chair. There are no family/friend visitors at this time Sitter present at this time. 01:03 No provider procedures requiring assistance completed. aa1 01:15 Katherine Zuleta RN is Primary Nurse. aa1 Administered Medications: 00:03 Drug: NARcan 2 mg Route: IVP; Site: left antecubital; aa1 00:28 Follow up: Response: No adverse reaction; No change in condition aa1 00:07 Drug: Atropine 0.5 mg Route: IVP; Site: left antecubital; aa1 00:25 Follow up: Response: No adverse reaction; Marked relief of symptoms; Cardiac rhythm aa1 changed 00:08 CANCELLED (Duplicate Order): Atropine 0.5 mg IVP once aa1 00:08 CANCELLED (Duplicate Order): NARcan 2 mg IVP once aa1 00:24 Drug: NS 0.9% 1000 ml Route: IV; Rate: 1000 ml; Site: left antecubital; aa1 01:23 Follow up: IV Status: Completed infusion; IV Intake: 1000ml aa1 00:25 Drug: NS 0.9% 1000 ml Route: IV; Rate: 1000 ml; Site: left antecubital; aa1 01:22 Follow up: IV Status: Completed infusion; IV Intake: 1000ml aa1 Intake: 01:22 IV: 1000ml; Total: 1000ml. aa1 01:23 IV: 1000ml; Total: 2000ml. aa1 Outcome: 00:19 Decision to Hospitalize by Provider. jr8 01:03 Admitted to ER Hold. Please see [facility] for further documentation. aa1 01:03 Condition: stable 07:21 Patient left the ED. sv Signatures: Rowena Castillo RN RN sv Autenrieth, Alissa, RN RN aa1 Ruba Powell RN RN fc Martinez, Eric em1 Otis Healy PA PA jr8 Damon Madsen RN RN ao Corrections: (The following items were deleted from the chart) 00:41 00:03 Patient arrived in ED. em1 aa1
--- NOTE | 2019-07-02 00:38 | EDPHYS ---
Physician Documentation [facility] Name: Josefa Maier Age: 34 yrs Sex: Female : 1985 Arrival Date: 07/02/2019 Time: 00:03 Bed 3 Private MD: ED Physician Walker Hughes HPI: 07/02 00:11 This 34 yrs old Female presents to ER via EMS with complaints of Overdose. jr8 00:11 The patient presents to the emergency department after a known overdose, that was jr8 intentional. Context: Method: the patient has a confirmed or suspected ingestion, muscle relaxant , Time: 1 hour(s) ago, Extent: the strength of the pills/capsules is 2 mg(s), the patient had a total ingestion of approximately 60 mg(s), the OD/poisoning occurred at at home, Psychiatric history: the patient has a known psychiatric disorder, bipolar disorder, depression. Associated signs and symptoms: Pertinent positives: decreased level of consciousness, diaphoresis. Severity of symptoms: At their worst the symptoms were moderate in the emergency department the symptoms are unchanged. It is unknown whether or not the patient has had similar symptoms in the past. The patient has not recently seen a physician. Patient stated that she tried to hurt herself. Could not understand why do to mental status and decreased LOC. Stated that she took 30 pills. Patient cool, diaphoretic, and bradycardic upon arrival. Took Tizanidine . Historical: - Allergies: 00:10 NKA; fc - Home Meds: 00:10 Singulair 10 mg oral tab 1 tab once daily [Active]; ranitidine HCl 150 mg Oral cap 1 fc cap 2 times per day [Active]; tizanidine 2 mg oral tab twice a day [Active]; - PMHx: 00:10 Depression; Bipolar disorder; GERD; Anxiety; Asthma; Hyperlipidemia; fc - Immunization history:: Adult Immunizations unknown. - Social history:: Smoking status: unknown. - Ebola Screening: : Unable to complete screening because patient is disoriented, . ROS: 00:11 Eyes: Negative for injury, pain, redness, and discharge, ENT: Negative for injury, jr8 pain, and discharge, Neck: Negative for injury, pain, and swelling, Cardiovascular: Negative for chest pain, palpitations, and edema, Respiratory: Negative for shortness of breath, cough, wheezing, and pleuritic chest pain, Abdomen/GI: Negative for abdominal pain, nausea, vomiting, diarrhea, and constipation, Back: Negative for injury and pain, MS/Extremity: Negative for injury and deformity, Skin: Negative for injury, rash, and discoloration. 00:11 Neuro: Positive for altered mental status. 00:11 Psych: Positive for depression, suicide gesture, suicidal ideation. Exam: 00:11 Eyes: Pupils equal round and reactive to light, extra-ocular motions intact. Lids and jr8 lashes normal. Conjunctiva and sclera are non-icteric and not injected. Cornea within normal limits. Periorbital areas with no swelling, redness, or edema. ENT: Nares patent. No nasal discharge, no septal abnormalities noted. Tympanic membranes are normal and external auditory canals are clear. Oropharynx with no redness, swelling, or masses, exudates, or evidence of obstruction, uvula midline. Mucous membranes moist. Neck: Trachea midline, no thyromegaly or masses palpated, and no cervical lymphadenopathy. Supple, full range of motion without nuchal rigidity, or vertebral point tenderness. No Meningismus. Respiratory: Lungs have equal breath sounds bilaterally, clear to auscultation and percussion. No rales, rhonchi or wheezes noted. No increased work of breathing, no retractions or nasal flaring. Abdomen/GI: Soft, non-tender, with normal bowel sounds. No distension or tympany. No guarding or rebound. No evidence of tenderness throughout. MS/ Extremity: Pulses equal, no cyanosis. Neurovascular intact. Full, normal range of motion. 00:11 Cardiovascular: Rate: bradycardic, actual rate is 38 bpm, Rhythm: regular, Pulses: Pulses are 2+ in right radial artery and left radial artery. Heart sounds: normal, normal S1and S2, no S3 or S4, no murmur, no rub, no gallop, Edema: is not appreciated, JVD: is not appreciated. 00:11 Skin: Appearance: Color: pale, Temperature: cold, Moisture: damp, petechiae, not noted, ecchymosis, not noted, no rash present. 00:11 Neuro: Orientation: to person, place, Mentation: able to follow commands, slow to respond, Memory: immediate memory is intact, remote memory is intact. recent memory is intact, Cranial nerves: Nystagmus is absent. Speech is slowed, slurred, Tongue strength is normal, Cerebellar function: unable to test, Motor: moves all fours, Sensation: no obvious gross deficits, Gait: not tested. seizure activity, is not displayed by the patient, Abnormal movements: there are no abnormal movements. Vital Signs: 07/01 23:50 BP 153 / 99; Pulse 40; Resp 18; Pulse Ox 100% on R/A; Weight 70.31 kg (R); Height 5 ft. fc 1 in. (154.94 cm) (R); Pain 0/10; 07/02 00:25 BP 159 / 108; Pulse 88; Resp 22; Pulse Ox 98% on R/A; aa1 00:31 Temp 95.4(C); ao 01:03 BP 141 / 93; Pulse 79; Resp 18; Temp 95.3(C); Pulse Ox 96% on R/A; Pain 0/10; aa1 07/01 23:50 Body Mass Index 29.29 (70.31 kg, 154.94 cm) fc MDM: 00:06 Patient medically screened. 07/02 00:42 Order name: Basic Metabolic Panel; Complete Time: :35 EDMS 07/02 00:42 Order name: Liver (Hepatic) Function; Complete Time: EDMS 07/02 00:42 Order name: Acetaminophen Level; Complete Time: : EDMS 07/02 00:42 Order name: Alcohol Serum/Plasma; Complete Time: :35 EDMS 07/02 00:07 Order name: EKG; Complete Time: 01:05 07/02 00:07 Order name: EKG - Nurse/Tech; Complete Time: 00:09 07/02 00:42 Order name: Salicylates Level; Complete Time: :35 EDMS 07/02 00:42 Order name: Test Serum, Qualitat; Complete Time: 01:02 MS 07/02 00:42 Order name: CBC with Automated Diff; Complete Time: :35 EDMS 07/02 00:42 Order name: Protime (+INR); Complete Time: :35 EDMS 07/02 00:42 Order name: PTT, Activated Partial Thromb; Complete Time: :35 EDMS 07/02 00:42 Order name: Urine Drug Screen; Complete Time: 01:35 EDMA 07/02 03:11 Order name: Thyroid Stimulating Hormone; Complete Time: 03:39 EDMA 07/02 04:31 Order name: Glucose, Ancillary (Novameter) [facility] 07/02 00:07 Order name: IV Saline Lock; Complete Time: 00:09 [facility] 07/02 00:07 Order name: Labs collected and sent; Complete Time: 00:28 [facility] 07/02 00:07 Order name: Urine Dipstick-Ancillary (obtain specimen); Complete Time: 00:28 [facility] 07/02 00:10 Order name: Chaidez; Complete Time: 00:25 aa1 Administered Medications: 00:03 Drug: NARcan 2 mg Route: IVP; Site: left antecubital; aa1 00:28 Follow up: Response: No adverse reaction; No change in condition aa1 00:07 Drug: Atropine 0.5 mg Route: IVP; Site: left antecubital; aa1 00:25 Follow up: Response: No adverse reaction; Marked relief of symptoms; Cardiac rhythm aa1 changed 00:08 CANCELLED (Duplicate Order): Atropine 0.5 mg IVP once aa1 00:08 CANCELLED (Duplicate Order): NARcan 2 mg IVP once aa1 00:24 Drug: NS 0.9% 1000 ml Route: IV; Rate: 1000 ml; Site: left antecubital; aa1 01:23 Follow up: IV Status: Completed infusion; IV Intake: 1000ml aa1 00:25 Drug: NS 0.9% 1000 ml Route: IV; Rate: 1000 ml; Site: left antecubital; aa1 01:22 Follow up: IV Status: Completed infusion; IV Intake: 1000ml aa1 Disposition: 21:21 Co-signature as Attending Physician, Walker Hughes MD. rn Disposition: 07/02/19 00:19 Hospitalization ordered by Cristopher Sanchez for Inpatient Admission. Preliminary diagnosis are Suicide attempt, Adverse effect of predominantly alpha-adrenoreceptor agonists. - Bed requested for Intensive Care Unit. - Status is Inpatient Admission. sv - Condition is Fair. - Problem is new. - Symptoms have improved. UTI on Admission? No Signatures: [facility] Rowena Castillo RN RN sv Webb, Martha, RN RN Katherine Zuleta RN RN aa1 Ruba Powell RN RN Walker Hughes MD MD rn Martinez, Eric em1 Otis Healy PA PA jr8 Corrections: (The following items were deleted from the chart) 00:08 00:07 Atropine 0.5 mg IVP once ordered. aa1 aa1 00:08 00:07 NARcan 2 mg IVP once ordered. aa1 aa1 00:10 00:07 Chaidez ordered. jr8 aa1 00:54 00:19 Hospitalization Ordered by Cristopher Sanchez for Inpatient Admission. Preliminary em1 diagnosis is Suicide attempt; Adverse effect of predominantly alpha-adrenoreceptor agonists. Bed requested for Intensive Care Unit. Status is Inpatient Admission. Condition is Fair. Problem is new. Symptoms have improved. UTI on Admission? No. jr8 01:07 01:05 PROTIME (+INR)+COAG.LAB.BRZ ordered. EDMS EDMS 01:07 01:05 PTT, ACTIVATED+COAG.LAB.BRZ ordered. EDMS EDMS 01:08 01:05 CBC+H.LAB.BRZ ordered. EDMS EDMS 01:08 01:05 ETHANOL+C.LAB.BRZ ordered. EDMS EDMS 01:08 01:05 SALICYLATE+C.LAB.BRZ ordered. EDMS EDMS 01:08 01:05 URINE DRUG SCREEN+CHEM UR.LAB.BRZ ordered. EDMS EDMS 01:08 01:05 TEST, SERUM+SC.LAB.BRZ ordered. EDMS EDMS 01:09 01:05 ACETAMINOPHEN+C.LAB.BRZ ordered. EDMS EDMS 01:09 01:05 BASIC METABOLIC PANEL+C.LAB.BRZ ordered. EDMS EDMS 01:09 01:05 HEPATIC FUNCTION+C.LAB.BRZ ordered. EDMS EDMS 05:39 00:54 07/02/2019 00:19 Hospitalization Ordered by Cristopher Sanchez for Inpatient Admission. Preliminary diagnosis is Suicide attempt; Adverse effect of predominantly alpha-adrenoreceptor agonists. Bed requested for [facility] ER HOLD. Status is Inpatient Admission. Condition is Fair. Problem is new. Symptoms have improved. UTI on Admission? No. em1 07:21 05:39 07/02/2019 00:19 Hospitalization Ordered by Cristopher Sanchez for Inpatient Admission. Preliminary diagnosis is Suicide attempt; Adverse effect of predominantly alpha-adrenoreceptor agonists. Bed requested for Intensive Care Unit. Status is Inpatient Admission. Condition is Fair. Problem is new. Symptoms have improved. UTI on Admission? No. mw
[2019-07-02 01:04] LABS: Absolute Lymphocytes (CBC) 2.5 K/uL (0.7-4.9); Basophils % 0.7 % (0-1.3); Hematocrit 39.3 % (36.0-45.0); Lymphocytes % 21.7 % (15.3-44.8); MPV 10.2 fL (7.6-11.3); RBC Red Blood Cell Count 4.36 M/uL (3.86-4.86)
--- NOTE | 2019-07-02 01:04 | P.HP ---
Certification for Inpatient With expected LOS: >2 Midnights Patient will require the following post-hospital care: None Practitioner: I am a practitioner with admitting privileges, knowledge of patient current condition, hospital course, and medical plan of care. Services: Services provided to patient in accordance with Admission requirements found in Title 42 Section 412.3 of the Code of Federal Regulations Patient History Date of Service: 07/02/19 Reason for admission: Altered mental state History of Present Illness: 34-year-old woman with unknown medical history was brought to the emergency department by EMS due to altered mental status from overdose with Tizanidine. According to reports, patient took about 30 tablets of 2 mg Tizanidine in an attempt to harm herself. In the ED, patient was noted to have bradycardia with heart rate down to 38 and also hypothermic. EKG demonstrated sinus bradycardia at 38. She was given IV NS and a dose of atropine. Her heart rate responded to the atropine and is now maintained in the 70s to 80s. Warming blanket is place on her for hypothermia. Patient is obtunded and cannot provide any history. No family member around to provide any history. Labs are unremarkable except hyperglycemia. Toxicology screen is positive THC. She is admitted to the ICU for further management. Allergies No Known Drug Allergies Allergy (Unverified 12/29/14 13:11) Unknown No Known Allergies Allergy (Uncoded 04/07/16 14:58) Unknown Home Medications: Albuterol Sulfate [Proair Hfa] 2 puff IH BID PRN 07/02/19 Fluoxetine HCl [Prozac] 20 mg PO DAILY 07/02/19 Montelukast [Singulair] 10 mg PO DAILY 07/02/19 Tizanidine HCl 2 mg PO BID 07/02/19 - Past Medical/Surgical History Past Medical History: Unable to obtain Past Surgical History: Unable to obtain - Social History Smoking Status: Unknown if ever smoked Place of Residence: Home Review of Systems is unable to be obtained (Due to altered mental status) Physical Examination - Physical Exam General: In no apparent distress, Unresponsive HEENT: Atraumatic, Normocephalic, PERRLA, Mucous membr. moist/pink Neck: Supple, JVD not distended, No Thyromegaly Respiratory: Clear to auscultation bilaterally, Normal air movement Cardiovascular: No edema, Regular rate/rhythm, Normal S1 S2, No murmurs Capillary refill: <2 Seconds Gastrointestinal: Normal bowel sounds, Soft and benign, Non-distended, No tenderness Musculoskeletal: No swelling Integumentary: No rashes Neurological: Other (Unresponsive. She moves all extremities spontaneously.) Assessment and Plan - Problems (Diagnosis) (1) Metabolic encephalopathy Current Visit: Yes Status: Acute (2) Drug overdose, intentional Current Visit: Yes Status: Acute (3) Bradycardia Current Visit: Yes Status: Acute (4) Hypothermia Current Visit: Yes Status: Acute - Plan Admit to ICU Supportive measures with IV NS Transcutaneous pacemaker standby. Atropine p.r.n. for bradycardia Warming blanket Frequent neuro checks. She is able to protect her airway at this time. Keep NPO Correct electrolyte abnormalities as they arise. Serial EKG Suicide screen and subsequent history to be taken once patient is fully awake - Advance Directives Does patient have a Living Will: No Does patient have a Durable POA for Healthcare: No
[2019-07-02 01:09] LABS: Protime INR 1.06
[2019-07-02 01:20] LABS: ALT/SGPT 18 U/L (12-78); AST/SGOT 15 U/L (15-37); Albumin 3.5 g/dL (3.4-5.0); Alkaline Phosphatase 49 U/L (45-117); BUN Blood Urea Nitrogen 12 mg/dL (7-18); Bicarbonate 23 mmol/L (21-32); Bilirubin Direct 0.1 mg/dL (0-0.2); Bilirubin Total 0.3 mg/dL (0.2-1.0); Glucose Level 273 mg/dL (74-106); Potassium 3.6 mmol/L (3.5-5.1); Protein, Total 6.5 g/dL (6.4-8.2); Sodium Level 139 mmol/L (136-145)
[2019-07-02 01:30] LABS: Barbiturates NEGATIVE (NEGATIVE); Benzodiazepines NEGATIVE (NEGATIVE); Cocaine NEGATIVE (NEGATIVE); METHAMPHETAM NEGATIVE (NEGATIVE); Methadone NEGATIVE (NEGATIVE); Opiates NEGATIVE (NEGATIVE); Phencyclidine NEGATIVE (NEGATIVE); THC Cannibis POSITIVE (NEGATIVE)
[2019-07-02] MEDS ORDERED: ONDANSETRON 4 MG/2 ML VIAL IV PRN (02:36)
[2019-07-02 02:41] VITALS: BMI 29.2
[2019-07-02] MEDS: D5 0.9 NS 1,000 ML IV SCH ×2 (03:12→08:47)
[2019-07-02 06:34] VITALS: TEMP 97.3
[2019-07-02] MEDS ORDERED: ENOXAPARIN 40 MG/0.4 ML SQ SCH (09:00)
[2019-07-02] MEDS ORDERED: POTASSIUM CL SA 10 MEQ TAB PO ONE ×2 (09:05→12:00)
[2019-07-02 09:25] VITALS: O2SAT 99
--- NOTE | 2019-07-02 09:34 | EKG ---
Test Date: 2019-07-02 Test Time: 00:00:49 Sprinkler Inspector: FANNY MEASUREMENT RESULTS: Intervals: Rate: 38 [place]: 158 QRSD: 76 QT: 544 QTc: 432 [place]: P: 15 [place]: 158 QRS: 36 T: 34 INTERPRETIVE STATEMENTS: Marked sinus bradycardia Abnormal ECG Compared to ECG 09/05/2018 01:19:12 Sinus rhythm no longer present Electronically Signed On 07-02-19 09:33:37 CDT by Shar Kingsley
--- NOTE | 2019-07-02 11:23 | P.PN ---
Subjective Date of Service: 07/02/19 Primary Care Provider: Unknown Chief Complaint: Altered mental state Subjective: Improving, Doing well Physical Examination - Vital Signs Temperature: 97.3 F Blood Pressure: 108/72 Pulse: 50 Respirations: 27 Pulse Ox (%): 98 - Physical Exam General: Alert, In no apparent distress, Oriented x3, Cooperative HEENT: Atraumatic, Normocephalic Neck: Supple Respiratory: Clear to auscultation bilaterally, Normal air movement Cardiovascular: Normal pulses, Regular rate/rhythm Gastrointestinal: Normal bowel sounds, Soft and benign, Non-distended, No tenderness, No masses, No rebound, No guarding Musculoskeletal: No erythema, No tenderness, No warmth Integumentary: No tenderness/swelling, No erythema, No warmth, No cyanosis Neurological: Normal speech, Normal strength at 5/5 x4 extr, Normal tone, Normal affect - Studies Laboratory Data (last 24 hrs) 07/02/19 00:20: PT 12.5, INR 1.06, APTT 28.7 07/02/19 00:20: WBC 11.7 H, Hgb 13.5, Hct 39.3, Plt Count 304 07/02/19 00:20: Sodium 139, Potassium 3.6, BUN 12, Creatinine 1.03, Glucose 273 H, Total Bilirubin 0.3, AST 15, ALT 18, Alkaline Phosphatase 49 07/02/19 00:07: PT Cancelled, INR Cancelled, APTT Cancelled 07/02/19 00:07: WBC Cancelled, Hgb Cancelled, Hct Cancelled, Plt Count Cancelled 07/02/19 00:07: Sodium Cancelled, Potassium Cancelled, BUN Cancelled, Creatinine Cancelled, Glucose Cancelled, Total Bilirubin Cancelled, AST Cancelled, ALT Cancelled, Alkaline Phosphatase Cancelled Medications List Reviewed: Yes Assessment & Plan Discharge Plan: Psychiatry Plan to discharge in: 24 Hours Physician Review Additional Text: Impression: Metabolic encephalopathy related to intentional drug overdose-Zanaflex with suicidal ideation, intent Depression with anxiety Hypothermia, resolved Bradycardia, resolved THC positive Plan: Metabolic encephalopathy related to intentional drug overdose-Zanaflex with suicidal ideation, intent: Patient much improved. Patient alert and cooperative. Bradycardia and hypothermia has resolved. Patient appears to be at her baseline mentation. Mental health care home warrant in place. Patient admitted taking drug overdose. Patient with history of suicidal ideation. This was intentional. Patient wishes to get help. Will have [facility] evaluate patient for inpatient psychiatric transfer. Patient currently medically stable at this time for transfer. Depression with anxiety: Will need inpatient psychiatric transfer. Hypothermia, resolved: as above Bradycardia, resolved: as above THC positive: Will need cessation education Time Spent Managing Pts Care (In Minutes): 55
[2019-07-02] MEDS ORDERED: ALBUTEROL IH PRN (14:45)
--- NOTE | 2019-07-02 14:55 | P.DS ---
Admission Date: 07/02/19 Discharge Date: 07/02/19 Primary Care Provider: Unknown Disposition: TRANSFR TO OTHER-PSY/CD/REHAB Discharge Condition: GOOD Reason for Admission: Altered mental state Consultations: [facility]-PSYC Procedures: Medical Problem List: Metabolic encephalopathy related to intentional drug overdose-Zanaflex with suicidal ideation, intent Depression with anxiety Hypothermia, resolved Bradycardia, resolved THC positive Brief History of Present Illness: 34-year-old female presented to the emergency room with altered mental status secondary to overdose with to standing. Mostly the information came from the ED physician. Patient was not able to provide adequate initial history. Patient apparently took 30 tablets of 2 mg Tizanidine in an attempt to harm herself. Patient was initially bradycardic with a heart rate around 38 and hypothermic. Patient was given IV normal saline and a dose of atropine. Patient was stabilize in the emergency room. Patient was admitted for further evaluation to the ICU. Hospital Course: Patient presented with metabolic encephalopathy related to intentional drug overdosed-to [place] jalyn. Patient attempted to harm herself. Patient had suicidal ideation and intent. Patient was admitted to the ICU. Patient improved with IV fluids. Patient had an initial bradycardia and hypothermia but this resolved. Patient has medical health long-term warrant in place. Patient with history of suicide ideation and depression. Patient currently alert and cooperative. Patient admitted taking medication and trying to hurt herself. [facility] evaluated patient and recommended inpatient psychiatric transfer for further treatment. Case discussed at length with psychiatry-Dr. Corona at [facility]. He has accepted the patient to further evaluate and treat. Patient will be transferred. Patient currently medically stable for transfer. Patient previously on Prozac. This will need to be continued. Patient was positive for THC. Cessation education will be provided. Vital Signs/Physical Exam: Temp Pulse Resp BP Pulse Ox 97.3 F 50 27 H 108/72 98 07/02/19 11:27 07/02/19 11:27 07/02/19 11:27 07/02/19 11:27 07/02/19 11:27 General: Alert, Oriented x3, Cooperative HEENT: Atraumatic Neck: Supple Respiratory: Clear to auscultation bilaterally, Normal air movement Cardiovascular: Normal pulses, Regular rate/rhythm Gastrointestinal: Normal bowel sounds, Soft and benign, Non-distended, No tenderness, No masses, No rebound, No guarding Musculoskeletal: No erythema, No tenderness, No warmth Integumentary: No tenderness/swelling, No erythema, No warmth, No cyanosis Neurological: Normal speech, Normal strength at 5/5 x4 extr, Normal tone, Normal affect Laboratory Data at Discharge: WBC 11.7 K/uL (4.3-10.9) H 07/02/19 00:20 Hgb 13.5 g/dL (12.0-15.0) 07/02/19 00:20 Hct 39.3 % (36.0-45.0) 07/02/19 00:20 Plt Count 304 K/uL (152-406) 07/02/19 00:20 PT 12.5 SECONDS (9.5-12.5) 07/02/19 00:20 INR 1.06 07/02/19 00:20 APTT 28.7 SECONDS (24.3-36.9) 07/02/19 00:20 Sodium 139 mmol/L (136-145) 07/02/19 00:20 Potassium 3.6 mmol/L (3.5-5.1) 07/02/19 00:20 BUN 12 mg/dL (7-18) 07/02/19 00:20 Creatinine 1.03 mg/dL (0.55-1.3) 07/02/19 00:20 Glucose 273 mg/dL (74-106) H 07/02/19 00:20 Total Bilirubin 0.3 mg/dL (0.2-1.0) 07/02/19 00:20 AST 15 U/L (15-37) 07/02/19 00:20 ALT 18 U/L (12-78) 07/02/19 00:20 Alkaline Phosphatase 49 U/L (45-117) 07/02/19 00:20 Home Medications: Albuterol Sulfate [Proair Hfa] 2 puff IH BID PRN 07/02/19 Fluoxetine HCl [Prozac] 20 mg PO DAILY 07/02/19 Montelukast [Singulair*] 10 mg PO DAILY 07/02/19 Patient Discharge Instructions: [facility] and [facility]. Diet: Regular Activity: Ad jabier Time spent managing pt's care (in minutes): 55
[2019-07-02 17:43] VITALS: BP 136/77
[2019-07-03] MEDS ORDERED: FLUOXETINE 20 MG CAP PO SCH (09:00)
[2019-07-03] MEDS ORDERED: MONTELUKAST 10 MG TAB PO SCH (09:00)
== END 2019-07-02 17:40 | DRG 917 ==
LOC: ER 23:53 → ERHOLD 07-02 01:38 → 3RD-ICU 07-02 07:13
PROVIDERS: ADMIT Internal Medicine; ATTEND Family Medicine
DX: T42.8X2A Poisoning by antiparkinsonism drugs and other central muscle-tone depressants, intentional self-harm, initial encounter (principal); G92 Toxic encephalopathy; R00.1 Bradycardia, unspecified; R68.0 Hypothermia, not associated with low environmental temperature; R73.9 Hyperglycemia, unspecified; F12.10 Cannabis abuse, uncomplicated; F41.8 Other specified anxiety disorders; Y92.9 Unspecified place or not applicable
CPT/HCPCS: 36415; 51702; 80048; 80076; 80307; 80320; 80329; 82962; 84443; 84703; 85025; 85610; 85730; 93005; 96361; 96374; 96375; 99285; J1650; J2310; J7030; J7042

== ENCOUNTER 2021-03-26 21:25 | Emergency (ER) | payer OTHER ==
--- OUTSIDE RECORDS SUMMARY | 2021-03-26 21:27 | XMS REPORT | Continuity of Care Document ---
:1985 Author Organization [facility] t Address [address] [place] [address] Care Team Providers Name Role Phone Doctor Unassigned, Name Attending Clinician Unavailable Problems This patient has no known problems. Allergies, Adverse Reactions, Alerts This patient has no known allergies or adverse reactions. Medications This patient has no known medications. Procedures This patient has no known procedures. Encounters Start End Encounter Admission Attending Care Care Encounter Source Date/Time Date/Time Type Type Clinicians Facility Department ID 2020-12-10 2020-12-10 Orders Doctor HE [id number] 00:00:00 00:00:00 Only UnassignedBOBBY [id number] [place] [facility] [id number] Results This patient has no known results.
--- NOTE | 2021-03-26 22:12 | EDPHYS ---
Physician Documentation [facility] Name: Josefa Maier Age: 35 yrs Sex: Female : 1985 Arrival Date: 03/26/2021 Time: 21:29 Bed 12 Private MD: ED Physician Ricardo Montemayor HPI: 03/26 22:13 This 35 yrs old Female presents to ER via Ambulatory with complaints of Mouth pm1 Infection. 22:13 The patient presents with swelling. The problem is located in the upper right first pm1 molar and upper right second bicuspid. Onset: The symptoms/episode began/occurred 3 day(s) ago. Duration: The symptoms are continuous. Modifying factors: The symptoms are alleviated by nothing, the symptoms are aggravated by food. Associated signs and symptoms: Pertinent positives: swelling, facial, Pertinent negatives: fever, inability to eat. Severity of symptoms: in the emergency department the symptoms are actually worse. The patient has experienced similar episodes in the past, multiple times. The patient has not recently seen a physician. 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 - Social history:: Smoking status: Patient reports the use of cigarette tobacco products, cigars, Patient/guardian denies using alcohol, street drugs. ROS: 22:13 Constitutional: Negative for fever, chills, and weight loss. pm1 22:13 Cardiovascular: Negative for chest pain, palpitations, and edema, Respiratory: Negative for shortness of breath, cough, wheezing, and pleuritic chest pain, Abdomen/GI: Negative for abdominal pain, nausea, vomiting, diarrhea, and constipation, MS/Extremity: Negative for injury and deformity, Skin: Negative for injury, rash, and discoloration. 22:13 ENT: Positive for dental pain, Negative for sore throat, difficulty swallowing, difficulty handling secretions, hoarseness. 22:13 All other systems are negative. Exam: 22:13 Constitutional: This is a well developed, well nourished patient who is awake, alert, pm1 and in no acute distress. Head/Face: Normocephalic, atraumatic. 22:13 Skin: Warm, dry with normal turgor. Normal color with no rashes, no lesions, and no evidence of cellulitis. MS/ Extremity: Pulses equal, no cyanosis. Neurovascular intact. Full, normal range of motion. 22:13 ENT: Mouth: Lips: normal, Oral mucosa: normal, pink and intact, moist, Gums: normal with healthy appearance, Posterior pharynx: no acute changes, Dental exam: dental caries, that is moderate, diffusely. 22:13 Cardiovascular: Rate: normal, Rhythm: regular, Pulses: no pulse deficits are appreciated. 22:13 Respiratory: Exam negative for acute changes, respiratory distress, shortness of breath. 22:13 Neuro: Exam negative for acute changes, Orientation: is normal, Mentation: is normal, Motor: is normal, moves all fours, Sensation: is normal, no obvious gross deficits. Vital Signs: 21:52 BP 121 / 63; Pulse 77; Resp 16 S; Temp 97.6(O); Pulse Ox 98% on R/A; Weight 77.11 kg bb (R); Height 5 ft. 1 in. (154.94 cm) (R); Pain 0/10; 22:12 Weight 46.4 kg (M); ca1 22:12 Body Mass Index 19.33 (46.40 kg, 154.94 cm) ca1 MDM: 22:07 Patient medically screened. pm1 22:11 Data reviewed: vital signs. Data interpreted: Pulse oximetry: on room air is 98 %. pm1 Interpretation: normal. 22:11 Counseling: I had a detailed discussion with the patient and/or guardian regarding: the pm1 historical points, exam findings, and any diagnostic results supporting the discharge/admit diagnosis, the need for outpatient follow up, for definitive care, a dentist, to return to the emergency department if symptoms worsen or persist or if there are any questions or concerns that arise at home. Administered Medications: 22:01 Drug: HYDROcodone-acetaminophen 5 mg-325 mg 1 tabs {Note: RASS 0.} Route: PO; bb 22:28 Follow up: Response: Medication administered at discharge. bb Disposition: 03/27 07:26 Co-signature as Attending Physician, Ricardo Montemayor MD. [email or web address] Disposition Summary: 03/26/21 22:12 Discharge Ordered Location: Home pm1 Problem: new pm1 Symptoms: have improved pm1 Condition: Stable pm1 Diagnosis - Dental caries, unspecified pm1 Followup: pm1 - With: Emergency Department - When: As needed - Reason: Worsening of condition Followup: pm1 - With: Private Physician - When: 2 - 3 days - Reason: Recheck today's complaints, Continuance of care, Re-evaluation by your physician Discharge Instructions: - Discharge Summary Sheet pm1 - Dental Caries, Adult pm1 - Dental Pain pm1 Forms: - Medication Reconciliation Form pm1 - Thank You Letter pm1 - Antibiotic Education pm1 - Prescription Opioid Use pm1 Prescriptions: - Amoxicillin 875 mg Oral Tablet - take 1 tablet by ORAL route every 12 hours for 10 days; 20 tablet; Refills: 0, pm1 Product Selection Permitted - Diclofenac Sodium 75 mg Oral Tablet Sustained Release - take 1 tablet by ORAL route 2 times per day; 30 tablet; Refills: 0, Product pm1 Selection Permitted Signatures: Ananya Eaton, BECKI RN Boston Simon NP POT PUNCHER pm1 Ricardo Montemayor MD MD 7
--- NOTE | 2021-03-26 22:12 | ER ---
Nurse's Notes [facility] Name: Josefa Maier Age: 35 yrs Sex: Female : 1985 Arrival Date: 03/26/2021 Time: 21:29 Bed 12 Private MD: Diagnosis: Dental caries, unspecified Presentation: 03/26 21:52 Chief complaint: Patient states: she started having a toothache on Sunday and now bb her face is swollen on the right side. Coronavirus screen: At this time, the client does not indicate any symptoms associated with coronavirus-19. Ebola Screen: No symptoms or risks identified at this time. Initial Sepsis Screen: Does the patient meet any 2 criteria? No. Patient's initial sepsis screen is negative. Does the patient have a suspected source of infection? No. Patient's initial sepsis screen is negative. Risk Assessment: Do you want to hurt yourself or someone else? Patient reports no desire to harm self or others. Onset of symptoms was March 23, 2021. 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 - Social history:: Smoking status: Patient reports the use of cigarette tobacco products, cigars, Patient/guardian denies using alcohol, street drugs. Screenin:57 Abuse screen: Denies threats or abuse. Nutritional screening: No deficits noted. bb Tuberculosis screening: No symptoms or risk factors identified. Fall Risk None identified. Assessment: 21:56 General: Appears in no apparent distress. Behavior is calm, cooperative. Pain: Denies bb pain. Neuro: Level of Consciousness is awake, alert, obeys commands, Oriented to person, place, time, situation. Cardiovascular: Capillary refill < 3 seconds Patient's skin is warm and dry. Respiratory: Respiratory effort is even, unlabored, Respiratory pattern is regular. EENT: Poor dentition noted. Dental caries noted in loss of teeth, dental caries noted. Derm: Skin is pink, warm \T\ dry. Musculoskeletal: Circulation, motion, and sensation intact. 22:28 Reassessment: Patient is alert, oriented x 3, equal unlabored respirations, skin bb warm/dry/pink. pt verbalized understanding of and agrees to plan of care discharge instructions given pt ambulated with steady gait to exit accompanied by family. Vital Signs: 21:52 BP 121 / 63; Pulse 77; Resp 16 S; Temp 97.6(O); Pulse Ox 98% on R/A; Weight 77.11 kg bb (R); Height 5 ft. 1 in. (154.94 cm) (R); Pain 0/10; 22:12 Weight 46.4 kg (M); ca1 22:12 Body Mass Index 19.33 (46.40 kg, 154.94 cm) ca1 ED Course: 21:29 Patient arrived in ED. bp1 21:51 Ananya Eaton RN is Primary Nurse. bb 21:54 Triage completed. bb 21:54 Arm band placed on Patient placed in an exam room. bb 21:57 Patient has correct armband on for positive identification. bb 22:07 Boston Nur NP is PHCP. pm1 22:07 Ricardo Montemayor MD is Attending Physician. pm1 22:29 No provider procedures requiring assistance completed. Patient did not have IV access bb during this emergency room visit. Administered Medications: 22:01 Drug: HYDROcodone-acetaminophen 5 mg-325 mg 1 tabs {Note: RASS 0.} Route: PO; bb 22:28 Follow up: Response: Medication administered at discharge. bb Outcome: 22:12 Discharge ordered by MD. pm1 22:30 Discharged to home ambulatory, with family. bb 22:30 Condition: stable 22:30 Discharge instructions given to patient, Instructed on discharge instructions, follow up and referral plans. medication usage, Demonstrated understanding of instructions, follow-up care, medications, Prescriptions given X 2. 22:30 Patient left the ED. bb Signatures: Ananya Eaotn RN RN bb Boston Nur NP DIRECT CARE STAFFER pm1 Bernie Villeda RN RN [facility] Elyse Castellanos bp1
[2021-03-26 22:35] VITALS: BP 121/63; TEMP 97.6; O2SAT 98
[2021-03-26] MEDS ORDERED: HYDROCODONE/APAP 5/325 MG TAB ONE (22:46)
== END 2021-03-26 22:30 | disposition home or self-care (01) ==
LOC: ER 21:25
DX: K02.9 Dental caries, unspecified (principal); F17.290 Nicotine dependence, other tobacco product, uncomplicated
CPT/HCPCS: 99283

== ENCOUNTER 2022-08-29 16:29 | Emergency (ER) | payer OTHER ==
--- OUTSIDE RECORDS SUMMARY | 2022-08-29 16:34 | XMS REPORT | Continuity of Care Document ---
:1985 Author Organization [facility] t Address [address] [place] [address] Care Team Providers Name Role Phone Sandy Jernigan Primary Care Physician [phone] Doctor Unassigned, [place] Attending Clinician Unavailable FELICE BRITO Attending Clinician Unavailable FELICE BRITO Attending Clinician Unavailable Payers Payer Name Policy Type Policy Number Effective Date Expiration Date S ource Problems Condition Condition Condition Status Onset Resolution Last Treating Co mments Source Name Details Category Date Date Treatment Clinician Date Surveillan Surveillan Disease Active Overview : Univers ce of ce of 12-09 Formattin ity of previously previously 00:00: g of this [place] prescribed prescribed 00 note Me dical contracept contracept might be Branch jose guadalupe method jose guadalupe method different from the original. ICD10 Diagnosis Term Intervention Teacher Utility Tobacco Tobacco Disease Active Univers use use 3-24 ity of disorder disorder 00:00: [place] [address] Medical Branch Obesity Obesity Disease Active Overview: Univ ers 3-24 Formattin ity of 00:00: g of this [place] 00 note Medical might be Branch different from the original. ICD10 Diagnosis Term Intervention Teacher Utility H/O tubal H/O tubal Disease Active Uni vers ligation ligation 2-27 ity of 00:00: [place] [address] Medical Branch Generalize Generalize Disease Active U nivers d anxiety d anxiety 2-27 ity of disorder disorder 00:00: [place] 00 [facility] Depression Depression Disease Active U nivers 6- ity of 00:00: [place] 00 Medical Branch Asthma Asthma Disease Active Univers 6 ity of 00:00: [place] 00 [facility] Branch Allergies, Adverse Reactions, Alerts Allergy Allergy Status Severity Reaction(s) Onset Inactive Treating Comm ents Source Name Type Date Date Clinician NO KNOWN Drug Active Univers ALLERGIE Class ity of S [facility] Social History Social Habit Start Date Stop Date Quantity Comments Source History SDOH University o f Alcohol Frequency [place] [facility] ed[facility] Branch History SDWI University o f Alcohol Std [place] [facility] Drinks Branch History [facility] University o f Alcohol Binge [place] [facility] Alcohol intake 2018-05-15 2018-05-15 Current drinker Unive rsity of 00:00:00 00:00:00 of alcohol [place] [facility] (finding) Branch Tobacco use and 2018-04-09 2018-04-09 Smokeless tobacco Un iversity of exposure 00:00:00 00:00:00 non-user [place] [facility] [place] History of 2018-02-24 Cigar Smoker University o f tobacco use 00:00:00 [facility] Tobacco Comment 2013-11-13 2013-11-13 Smokes black and Uni versity of 00:00:00 00:00:00 mild 3-5/day [place] [facility] Alcohol Comment 2013-11-13 2013-11-13 occasional Universit y of 00:00:00 00:00:00 [facility] Sex [birth year] Universit y of 00:00:00 00:00:00 [facility] Smoking Status Start Date Stop Date Source Ex-smoker 2018-04-09 00:00:00 2018-04-09 00:00:00 Universi ty of [facility] Medications Ordered Filled Start Stop Current Ordering Indication Dosage Frequency Signature Comments Components Source Medication Medication Date Date Medication? Clinician (SIG) Name Name APPLY A No 5 SMALL - AMOUNT OF 00:00: OINTMENT TO 00 AFFECTED EYE(S) 4 TIMES DAILY AND AT BEDTIME. APPLY A No 5 SMALL - AMOUNT OF 00:00: OINTMENT TO 00 AFFECTED EYE(S) 4 TIMES DAILY AND AT BEDTIME. APPLY A 2022-0 No 5 SMALL 8-09 AMOUNT OF 00:00: OINTMENT TO 00 AFFECTED EYE(S) 4 TIMES DAILY AND AT BEDTIME. Dose 2-0 No Unknown 8-09 00:00: 00 Dose 2022-0 No Unknown 8-09 00:00: 00 APPLY A 2-0 No 5 SMALL 8-05 AMOUNT OF 00:00: OINTMENT TO 00 AFFECTED EYE(S) 4 TIMES DAILY AND AT BEDTIME. Dose 2-0 No Unknown 8-04 00:00: 00 Dose 2022-0 No Unknown 8-04 00:00: 00 Dose 2022-0 No Unknown 8-03 00:00: 00 Dose 2022-0 No Unknown 8-03 00:00: 00 APPLY A 2-0 No 5 SMALL 8-03 AMOUNT OF 00:00: OINTMENT TO 00 AFFECTED EYE(S) 4 TIMES DAILY AND AT BEDTIME. Dose 2-0 No Unknown 8-03 00:00: 00 Dose 2022-0 No Unknown 8-03 00:00: 00 APPLY A 2-0 No 5 SMALL 8-03 AMOUNT OF 00:00: OINTMENT TO 00 AFFECTED EYE(S) 4 TIMES DAILY AND AT BEDTIME. oxcarbazepi 2-0 No 1mg ne 150 mg 5-27 tablet 00:00: 00 gabapentin 2022-0 No 1mg 100 mg 5-27 capsule 00:00: 00 oxcarbazepi 2022-0 No 1mg ne 150 mg 5-27 tablet 00:00: 00 gabapentin 2022-0 No 1mg 100 mg 5-27 capsule 00:00: 00 oxybutynin 2-0 No 1mg chloride ER 5-04 10 mg 00:00: tablet,exte 00 nded release 24 hr montelukast 2022-0 No 1mg 10 mg 5-04 tablet 00:00: 00 Cymbalta 30 2-0 No 1mg mg 5-04 capsule,del 00:00: ayed 00 release oxybutynin 2022-0 No 1mg chloride ER 5-04 10 mg 00:00: tablet,exte 00 nded release 24 hr montelukast 2-0 No 1mg 10 mg 5-04 tablet 00:00: 00 Cymbalta 30 2-0 No 1mg mg 5-04 capsule,del 00:00: ayed 00 release Ventolin 2022-0 No 12mcg/a HFA 90 5-02 ctuatio mcg/actuati 00:00: n on aerosol 00 inhaler montelukast 2-0 No 1mg 10 mg 5-02 tablet 00:00: 00 oxybutynin 2022-0 No 1mg chloride ER 5-02 10 mg 00:00: tablet,exte 00 nded release 24 hr Cymbalta 30 2-0 No 1mg mg 5-02 capsule,del 00:00: ayed 00 release Ventolin 2-0 No 12mcg/a HFA 90 5-02 ctuatio mcg/actuati 00:00: n on aerosol 00 inhaler montelukast 2-0 No 1mg 10 mg 5-02 tablet 00:00: 00 oxybutynin 2-0 No 1mg chloride ER 5-02 10 mg 00:00: tablet,exte 00 nded release 24 hr Cymbalta 30 2-0 No 1mg mg 5-02 capsule,del 00:00: ayed 00 release Dose 2-0 No Unknown 4-17 00:00: 00 Dose 2022-0 No Unknown 4-17 00:00: 00 Dose 2022-0 No Unknown 3-31 00:00: 00 Ventolin 2022-0 No 12mcg/a HFA 90 3-31 ctuatio mcg/actuati 00:00: n on aerosol 00 inhaler Dose 2-0 No Unknown 3-31 00:00: 00 oxybutynin 2022-0 No 1mg chloride ER 3-31 10 mg 00:00: tablet,exte 00 nded release 24 hr oxybutynin 2022-0 No 1mg chloride ER 3-31 10 mg 00:00: tablet,exte 00 nded release 24 hr montelukast 2-0 No 1mg 10 mg 3-31 tablet 00:00: 00 Dose 2022-0 No Unknown 3-31 00:00: 00 Cymbalta 30 2-0 No 1mg mg 3-31 capsule,del 00:00: ayed 00 release Dose 2-0 No Unknown 3-31 00:00: 00 Ventolin 2022-0 No 12mcg/a HFA 90 3-31 ctuatio mcg/actuati 00:00: n on aerosol 00 inhaler Dose 2021-0 No Unknown 3-31 00:00: 00 oxybutynin 2-0 No 1mg chloride ER 3-31 10 mg 00:00: tablet,exte 00 nded release 24 hr oxybutynin 2-0 No 1mg chloride ER 3-31 10 mg 00:00: tablet,exte 00 nded release 24 hr montelukast 2021-0 No 1mg 10 mg 3-31 tablet 00:00: 00 Dose 2-0 No Unknown 3-31 00:00: 00 Cymbalta 30 2021-0 No 1mg mg 3-31 capsule,del 00:00: ayed 00 release Dose 2-0 No Unknown 3-29 00:00: 00 Dose 2-0 No Unknown 3-29 00:00: 00 Dose 2-0 No Unknown 3-29 00:00: 00 Dose 2022-0 No Unknown 3-29 00:00: 00 Dose 2022-0 No Unknown 3-29 00:00: 00 Dose 2022-0 No Unknown 3-29 00:00: 00 Dose 2022-0 No Unknown 3-29 00:00: 00 Dose 2-0 No Unknown 3-29 00:00: 00 Dose 2-0 No Unknown 3-29 00:00: 00 Dose 2-0 No Unknown 3-29 00:00: 00 Dose 2022-0 No Unknown 3-29 00:00: 00 Dose 2022-0 No Unknown 3-29 00:00: 00 Dose 2022-0 No Unknown 3-29 00:00: 00 Dose 2-0 No Unknown 3-29 00:00: 00 Dose 2022-0 No Unknown 3-29 00:00: 00 Dose 2022-0 No Unknown 3-29 00:00: 00 Dose 2-0 No Unknown 3-29 00:00: 00 Dose 2-0 No Unknown 3-29 00:00: 00 Dose 2-0 No Unknown 3-29 00:00: 00 Dose 2022-0 No Unknown 3-29 00:00: 00 Dose 2022-0 No Unknown 3-29 00:00: 00 Dose 2022-0 No Unknown 3-29 00:00: 00 Dose 2022-0 No Unknown 3-29 00:00: 00 Dose 2022-0 No Unknown 3-29 00:00: 00 Dose 2022-0 No Unknown 3-29 00:00: 00 Dose 2022-0 No Unknown 3-29 00:00: 00 Dose 2022-0 No Unknown 3- 00:00: 00 Dose 2022-0 No Unknown 3- 00:00: 00 Dose 2022-0 No Unknown 3-29 00:00: 00 Dose 2022-0 No Unknown 3-29 00:00: 00 Dose 2022-0 No Unknown 3- 00:00: 00 Dose 2022-0 No Unknown 3- 00:00: 00 Dose 2022-0 No Unknown 3-29 00:00: 00 Dose 2022-0 No Unknown 3- 00:00: 00 Dose 2022-0 No Unknown 3- 00:00: 00 Dose 2022-0 No Unknown 3- 00:00: 00 Dose 2022-0 No Unknown 3- 00:00: 00 Dose 2022-0 No Unknown 3- 00:00: 00 Dose 2022-0 No Unknown 3- 00:00: 00 Dose 2022-0 No Unknown 3- 00:00: 00 Dose 2022-0 No Unknown 3-29 00:00: 00 Dose 2022-0 No Unknown 3-29 00:00: 00 Dose 2022-0 No Unknown 3- 00:00: 00 Dose 2022-0 No Unknown 3- 00:00: 00 Dose 2022-0 No Unknown 3- 00:00: 00 Dose 2022-0 No Unknown 3-29 00:00: 00 Dose 2022-0 No Unknown 3-29 00:00: 00 Dose 2022-0 No Unknown 3-29 00:00: 00 Dose 2022-0 No Unknown 3-29 00:00: 00 Dose 2022-0 No Unknown 3-29 00:00: 00 Dose 2022-0 No Unknown 3-29 00:00: 00 Dose 2022-0 No Unknown 3-29 00:00: 00 Dose 2022-0 No Unknown 3-29 00:00: 00 Dose 2022-0 No Unknown 3-29 00:00: 00 Dose 2022-0 No Unknown 3-29 00:00: 00 Dose 2022-0 No Unknown 3-29 00:00: 00 Dose 2022-0 No Unknown 3-29 00:00: 00 Dose 2022-0 No Unknown 3-29 00:00: 00 Dose 2022-0 No Unknown 3-29 00:00: 00 Dose 2022-0 No Unknown 3- 00:00: 00 Dose 2022-0 No Unknown 3- 00:00: 00 Dose 2022-0 No Unknown 3- 00:00: 00 Dose 2022-0 No Unknown 3- 00:00: 00 Dose 2022-0 No Unknown 3- 00:00: 00 Dose 2022-0 No Unknown 3- 00:00: 00 Dose 2022-0 No Unknown 3- 00:00: 00 Dose 2022-0 No Unknown 3- 00:00: 00 Dose 2022-0 No Unknown 3- 00:00: 00 Dose 2022-0 No Unknown 3- 00:00: 00 Dose 2022-0 No Unknown 3- 00:00: 00 Dose 2022-0 No Unknown 3- 00:00: 00 Dose 2022-0 No Unknown 3- 00:00: 00 Dose 2022-0 No Unknown 3- 00:00: 00 Dose 2022-0 No Unknown 3- 00:00: 00 Dose 2022-0 No Unknown 3- 00:00: 00 Dose 2022-0 No Unknown 3- 00:00: 00 Dose 2022-0 No Unknown 3- 00:00: 00 Dose 2022-0 No Unknown 3- 00:00: 00 Dose 2022-0 No Unknown 3-29 00:00: 00 Dose 2022-0 No Unknown 3- 00:00: 00 Dose 2022-0 No Unknown 3-29 00:00: 00 Dose 2022-0 No Unknown 3- 00:00: 00 Dose 2022-0 No Unknown 3-29 00:00: 00 Dose 2022-0 No Unknown 3-29 00:00: 00 Dose 2022-0 No Unknown 3-29 00:00: 00 Dose 2022-0 No Unknown 3-29 00:00: 00 Dose 2022-0 No Unknown 3-29 00:00: 00 Dose 2022-0 No Unknown 3-29 00:00: 00 Dose 2022-0 No Unknown 3-29 00:00: 00 Dose 2022-0 No Unknown 3-29 00:00: 00 Dose 2022-0 No Unknown 3-29 00:00: 00 Dose 2022-0 No Unknown 3-29 00:00: 00 Dose 2022-0 No Unknown 3-29 00:00: 00 Dose 2022-0 No Unknown 3- 00:00: 00 Dose 2022-0 No Unknown 3- 00:00: 00 Dose 2022-0 No Unknown 3-29 00:00: 00 Dose 2022-0 No Unknown 3-29 00:00: 00 Dose 2022-0 No Unknown 3-29 00:00: 00 Dose 2022-0 No Unknown 3- 00:00: 00 Dose 2022-0 No Unknown 3- 00:00: 00 Dose 2022-0 No Unknown 3- 00:00: 00 Dose 2022-0 No Unknown 3- 00:00: 00 Dose 2022-0 No Unknown 3- 00:00: 00 Dose 2022-0 No Unknown 3- 00:00: 00 Dose 2022-0 No Unknown 3- 00:00: 00 Dose 2022-0 No Unknown 3- 00:00: 00 Dose 2022-0 No Unknown 3- 00:00: 00 Dose 2022-0 No Unknown 3-29 00:00: 00 Dose 2022-0 No Unknown 3- 00:00: 00 Dose 2022-0 No Unknown 3- 00:00: 00 Dose 2022-0 No Unknown 3- 00:00: 00 Dose 2022-0 No Unknown 3-29 00:00: 00 Dose 2022-0 No Unknown 3-29 00:00: 00 Dose 2022-0 No Unknown 3- 00:00: 00 Dose 2022-0 No Unknown 3- 00:00: 00 Dose 2022-0 No Unknown 3-29 00:00: 00 Dose 2022-0 No Unknown 3-29 00:00: 00 Dose 2022-0 No Unknown 3-29 00:00: 00 Dose 2022-0 No Unknown 3- 00:00: 00 Dose 2022-0 No Unknown 3-29 00:00: 00 Dose 2022-0 No Unknown 3-29 00:00: 00 Dose 2022-0 No Unknown 3-29 00:00: 00 Dose 2022-0 No Unknown 3-29 00:00: 00 Dose 2-0 No Unknown 3-29 00:00: 00 Dose 2-0 No Unknown 3-29 00:00: 00 Dose 2-0 No Unknown 3-29 00:00: 00 Dose 2-0 No Unknown 3-29 00:00: 00 Dose 2022-0 No Unknown 3-29 00:00: 00 Dose 2-0 No Unknown 3-29 00:00: 00 Dose 2022-0 No Unknown 3-29 00:00: 00 Dose 1-0 No Unknown 8-18 00:00: 00 Dose 1-0 No Unknown 8-18 00:00: 00 Dose 1-0 No Unknown 4-17 00:00: 00 Dose 1-0 No Unknown 4-17 00:00: 00 Dose 1-0 No Unknown 4-16 00:00: 00 Dose 1-0 No Unknown 4-16 00:00: 00 Advair HFA 2020-0 No 1mcg/ac 45 mcg-21 3-26 tuation mcg/actuati 00:00: on aerosol 00 inhaler Ventolin 2020-0 No 12mcg/a HFA 90 3-26 ctuatio mcg/actuati 00:00: n on aerosol 00 inhaler Dose 2020-0 No Unknown 3-26 00:00: 00 Advair HFA 2020-0 No 1mcg/ac 45 mcg-21 3-26 tuation mcg/actuati 00:00: on aerosol 00 inhaler Ventolin 2020-0 No 12mcg/a HFA 90 3-26 ctuatio mcg/actuati 00:00: n on aerosol 00 inhaler Dose 2020-0 No Unknown 3-26 00:00: 00 Ventolin 2019-1 No 12mcg/a HFA 90 2-29 ctuatio mcg/actuati 00:00: n on aerosol 00 inhaler montelukast 2019-1 No 1mg 10 mg 2-29 tablet 00:00: 00 Ventolin 2020-1 No 12mcg/a HFA 90 2-29 ctuatio mcg/actuati 00:00: n on aerosol 00 inhaler montelukast 2020-1 No 1mg 10 mg 2-29 tablet 00:00: 00 Ventolin 2020-0 No 12mcg/a HFA 90 8-10 ctuatio mcg/actuati 00:00: n on aerosol 00 inhaler montelukast 2020-0 No 1mg 10 mg 8-10 tablet 00:00: 00 Ventolin 2020-0 No 12mcg/a HFA 90 8-10 ctuatio mcg/actuati 00:00: n on aerosol 00 inhaler montelukast 2020-0 No 1mg 10 mg 8-10 tablet 00:00: 00 Trileptal 2020-0 No 15mg 300 mg 8-07 tablet 00:00: 00 Dose 2020-0 No Unknown 8-07 00:00: 00 Trileptal 2020-0 No 15mg 300 mg 8-07 tablet 00:00: 00 Dose 2020-0 No Unknown 8-07 00:00: 00 Trileptal 2020-0 No 15mg 300 mg 6-25 tablet 00:00: 00 Prozac 20 2020-0 No 1mg mg capsule 6-25 00:00: 00 Trileptal 2020-0 No 15mg 300 mg 6-25 tablet 00:00: 00 Prozac 20 2020-0 No 1mg mg capsule 6-25 00:00: 00 Trileptal 2020-0 No 1mg 300 mg 6-09 tablet 00:00: 00 Prozac 20 2020-0 No 1mg mg capsule 6-09 00:00: 00 Trileptal 2020-0 No 1mg 300 mg 6-09 tablet 00:00: 00 Prozac 20 2020-0 No 1mg mg capsule 6-09 00:00: 00 Ventolin 2020-0 No 12mcg/a HFA 90 5-19 ctuatio mcg/actuati 00:00: n on aerosol 00 inhaler montelukast 2020-0 No 1mg 10 mg 5-19 tablet 00:00: 00 ibuprofen 2020-0 No 1mg 600 mg 5-19 tablet 00:00: 00 amoxicillin 2020-0 No 1mg 500 mg 5-19 capsule 00:00: 00 Ventolin 2020-0 No 12mcg/a HFA 90 5-19 ctuatio mcg/actuati 00:00: n on aerosol 00 inhaler montelukast 2020-0 No 1mg 10 mg 5-19 tablet 00:00: 00 ibuprofen 2020-0 No 1mg 600 mg 5-19 tablet 00:00: 00 amoxicillin 2020-0 No 1mg 500 mg 5-19 capsule 00:00: 00 Prozac 20 2020-0 No 1mg mg capsule 5-11 00:00: 00 Prozac 20 2020-0 No 1mg mg capsule 5-11 00:00: 00 Prozac 10 2019-0 No 12mg mg capsule 4-27 00:00: 00 Prozac 10 2019-0 No 12mg mg capsule 4-27 00:00: 00 Seroquel 50 2018-1 No 13mg mg tablet 2- 00:00: 00 fluoxetine 2018-1 No 1mg 20 mg 2-02 capsule 00:00: 00 Seroquel 50 2018-1 No 13mg mg tablet 2- 00:00: 00 fluoxetine 2018-1 No 1mg 20 mg 2-02 capsule 00:00: 00 fluoxetine 2018-1 No 1mg 20 mg 1-21 capsule 00:00: 00 fluoxetine 2018-1 No 1mg 20 mg 1-21 capsule 00:00: 00 fluoxetine 2018-1 No 1mg 20 mg 1-18 tablet 00:00: 00 fluoxetine 2018-1 No 1mg 20 mg 1-18 tablet 00:00: 00 fluoxetine 2018-1 No 1mg 20 mg 1-18 tablet 00:00: 00 fluoxetine 2018-1 No 1mg 20 mg 1-18 tablet 00:00: 00 albuterol 2017-0 Yes 2{puff} Inhale 2 U nivers 90 8-29 Puffs ity of mcg/actuati 14:39: every 6 [place] as on inhaler 18 (six) Medical hours as Branch needed for Wheezing or Shortness of Breath. albuterol 2017-0 Yes 2{puff} Inhale 2 U nivers 90 8-29 Puffs ity of mcg/actuati 09:39: every 6 [place] as on inhaler 18 (six) Medical hours as Branch needed for Wheezing or Shortness of Breath. methylcellu 2017- Yes 1{packe Take 1 U nivers lose 8-29 t} Packet by ity of (CITRUCEL 00:00: mouth [place] SUGAR FREE) 00 daily. Mix Me dical oral powder with 8 oz Bra n[facility] water. polyethylen 2017-0 Yes 17g Take 17 g U nivers e glycol 8-29 by mouth ity of (MIRALAX) 00:00: daily. [place] 17 00 Medical gram/dose Branch powder ranitidine 2017-0 Yes 150mg Take 1 Univ ers (ZANTAC) 8-29 tablet by ity of 150 mg 00:00: mouth 2 [place] tablet 00 (two) Medical times [place] daily as needed for Heartburn. methylcellu 2018-0 Yes 1{packe Take 1 U nivers lose 8-29 t} Packet by ity of (CITRUCEL 00:00: mouth [place] SUGAR FREE) 00 daily. Mix Me dical oral powder with 8 oz [facility] water. polyethylen 0 Yes 17g Take 17 g U nivers e glycol 8-29 by mouth ity of (MIRALAX) 00:00: daily. Medical gram/dose Branch powder ranitidine 0 Yes 150mg Take 1 Univ ers (ZANTAC) 8-29 tablet by ity of 150 mg 00:00: mouth 2 [place] tablet 00 (two) Medical times [place] daily as needed for Heartburn. cetirizine Yes [id number] 10mg Take 1 Univers 10 mg 7-26 tablet by ity of tablet 00:00: mouth [place] daily. Medical Branch triamcinolo Yes [id number] Apply to [facility] 7- area(s) 2 ity of acetonide 00:00: (two) [place] 0.1 % 00 times Medical ointment daily. Branch cetirizine Yes [id number] 10mg Take 1 Univers 10 mg 7-26 tablet by ity of tablet 00:00: mouth [place] 00 daily. Medical Branch triamcinolo Yes [id number] Apply to [facility] 7-26 area(s) 2 ity of acetonide 00:00: (two) [place] 0.1 % 00 times Medical ointment daily. Branch diclofenac 2017-0 Yes 75mg Take 75 mg U nivers 75 mg EC 6-22 by mouth 2 ity o f tablet 00:00: (two) [place] 00 times Medical daily. Branch diclofenac 2018-0 Yes 75mg Take 75 mg U nivers 75 mg EC 6-22 by mouth 2 ity o f tablet 00:00: (two) [place] 00 times Medical daily. Branch ALPRAZolam Yes 1mg Take 1 mg Un han 1 mg tablet 6-13 by mouth ity of 00:00: daily. [place] 00 Medical Branch FLUoxetine 2018-0 Yes 20mg Take 20 mg U nivers 20 mg 6-13 by mouth ity of capsule 00:00: daily. [address] Branch ALPRAZolam 2017-0 Yes 1mg Take 1 mg Un han 1 mg tablet 6-13 by mouth ity of 00:00: daily. [address] FLUoxetine 2018-0 Yes 20mg Take 20 mg U nivers 20 mg 6-13 by mouth ity of capsule 00:00: daily. [address] Branch CHANTIX 2018-0 Yes .5mg Apply 0.5 Unive rs STARTING 6-11 mg to skin ity o f MONTH BOX 00:00: daily. [place] 0.5 mg 00 Medical (11)- 1 mg Branch (42) tablet CHANTIX 2018-0 Yes .5mg Apply 0.5 Unive rs STARTING 6-11 mg to skin ity o f MONTH BOX 00:00: daily. [place] 0.5 mg 00 Medical (11)- 1 mg Branch (42) tablet Zoloft 100 2018-0 No 1mg mg tablet 1-24 00:00: 00 Zoloft 100 2018-0 No 1mg mg tablet 1-24 00:00: 00 Zoloft 50 1 No 1mg mg tablet 2-20 00:00: 00 Zoloft 50 1 No 1mg mg tablet 2-20 00:00: 00 Zoloft 50 1 No 1mg mg tablet 1-29 00:00: 00 Zoloft 50 1 No 1mg mg tablet 1-29 00:00: 00 Zoloft 50 1 No 1mg mg tablet 0-04 00:00: 00 Zoloft 50 1 No 1mg mg tablet 0-04 00:00: 00 hydrochloro 2014-09 No 1mg thiazide 0-28 12.5 mg 00:00: tablet 00 hydrochloro 2014-09 No 1mg thiazide 0-28 12.5 mg 00:00: tablet 00 ProAir HFA 2014-09 No 12mcg/a 90 0-27 ctuatio mcg/actuati 00:00: n on aerosol 00 inhaler Effexor XR 2014-09 No 1mg 150 mg 0-27 capsule,ext 00:00: ended 00 release clindamycin 2014-09 No 1mg 300 mg 0-27 capsule 00:00: 00 ProAir HFA 2015-1 No 12mcg/a 90 0-27 ctuatio mcg/actuati 00:00: n on aerosol 00 inhaler Effexor XR 2015-1 No 1mg 150 mg 0-27 capsule,ext 00:00: ended 00 release clindamycin 2015-1 No 1mg 300 mg 0-27 capsule 00:00: 00 hydroxyzine 2015-0 No 1mg pamoate 100 7-15 mg capsule 00:00: 00 hydroxyzine 2015-0 No 1mg pamoate 100 7-15 mg capsule 00:00: 00 hydroxyzine 2015-0 No 1mg pamoate 50 2-27 mg capsule 00:00: 00 hydroxyzine 2015-0 No 1mg pamoate 50 2-27 mg capsule 00:00: 00 Immunizations Ordered Filled Immunization Date Status Comments [facility] e Immunization Name Name TDAP 2013-11-14 Completed University of 00:00:00 [facility] TDAP 2013-11-14 Completed University of 00:00:00 [facility] Rho (d) Immune 2012-03-07 Completed University of Globulin 00:00:00 [facility] Influenza Virus 2012-03-07 Completed Universit y of Vaccine 00:00:00 [facility] Rho (d) Immune 2012-03-07 Completed University of Globulin 00:00:00 [facility] Influenza Virus 2012-03-07 Completed Universit y of Vaccine 00:00:00 [facility] Influenza Virus 2012-03-06 Completed Universit y of Vaccine 00:00:00 [facility] Influenza Virus 2012-03-06 Completed Universit y of Vaccine 00:00:00 [facility] Influenza Virus 2008-09-02 Completed Universit y of Vaccine 00:00:00 [facility] Influenza Virus 2008-09-02 Completed Universit y of Vaccine 00:00:00 [facility] Rho (d) Immune 2008-09-01 Completed University of Globulin 00:00:00 [facility] Rho (d) Immune 2008-09-01 Completed University of Globulin 00:00:00 [facility] Rho (d) Immune 2006-05-13 Completed University of Globulin 00:00:00 [facility] Rho (d) Immune 2006-05-13 Completed University of Globulin 00:00:00 [facility] Td 1999-11-13 Completed University of 00:00:00 [facility] Td 1999-11-13 Completed University of 00:00:00 [facility] Vital Signs Vital Name Observation Time Observation Value Comments Source BP Systolic 2022-04-25 14:05:00 145 mm[Hg] BP Diastolic 2022-04-25 14:05:00 95 mm[Hg] Weight Measured 2022-04-25 14:05:00 145.00 pounds Height Measured 2022-04-25 14:05:00 60.55 inches Body Temperature 2022-04-25 14:05:00 97.70 degrees Heart Rate 2022-04-25 14:05:00 88.00 /min Respiratory Rate 2022-04-25 14:05:00 BP Systolic 2022-04-19 14:35:00 126 mm[Hg] BP Diastolic 2022-04-19 14:35:00 83 mm[Hg] Weight Measured 2022-04-19 14:35:00 144.00 pounds Height Measured 2022-04-19 14:35:00 60.55 inches Body Temperature 2022-04-19 14:35:00 97.50 degrees Heart Rate 2022-04-19 14:35:00 98.00 /min Respiratory Rate 2022-04-19 14:35:00 21.00 /min BP Systolic 2021-12-13 14:23:00 127 mm[Hg] BP Diastolic 2021-12-13 14:23:00 75 mm[Hg] Weight Measured 2021-12-13 14:23:00 151.80 pounds Height Measured 2021-12-13 14:23:00 60.55 inches Body Temperature 2021-12-13 14:23:00 98.20 degrees Heart Rate 2021-12-13 14:23:00 82.00 /min Respiratory Rate 2021-12-13 14:23:00 17.00 /min BP Systolic 2021-07-11 16:10:00 133 mm[Hg] BP Diastolic 2021-07-11 16:10:00 90 mm[Hg] Weight Measured 2021-07-11 16:10:00 147.80 pounds Height Measured 2021-07-11 16:10:00 60.55 inches Body Temperature 2021-07-11 16:10:00 98.00 degrees Heart Rate 2021-07-11 16:10:00 95.00 /min Respiratory Rate 2021-07-11 16:10:00 17.00 /min BP Systolic 2021-05-04 15:07:00 142 mm[Hg] BP Diastolic 2021-05-04 15:07:00 88 mm[Hg] Weight Measured 2021-05-04 15:07:00 153.00 pounds Height Measured 2021-05-04 15:07:00 60.55 inches Body Temperature 2021-05-04 15:07:00 98.20 degrees Heart Rate 2021-05-04 15:07:00 80.00 /min Respiratory Rate 2021-05-04 15:07:00 16.00 /min BP Systolic 2021-04-29 13:58:00 133 mm[Hg] BP Diastolic 2021-04-29 13:58:00 84 mm[Hg] Weight Measured 2021-04-29 13:58:00 153.80 pounds Height Measured 2021-04-29 13:58:00 60.55 inches Body Temperature 2021-04-29 13:58:00 98.70 degrees Heart Rate 2021-04-29 13:58:00 94.00 /min Respiratory Rate 2021-04-29 13:58:00 BP Systolic 2020-12-31 10:42:00 113 mm[Hg] BP Diastolic 2020-12-31 10:42:00 76 mm[Hg] Weight Measured 2020-12-31 10:42:00 173.80 pounds Height Measured 2020-12-31 10:42:00 61.02 inches Body Temperature 2020-12-31 10:42:00 98.40 degrees Heart Rate 2020-12-31 10:42:00 99.00 /min Respiratory Rate 2020-12-31 10:42:00 18.00 /min BP Systolic 2020-09-14 11:10:00 116 mm[Hg] BP Diastolic 2020-09-14 11:10:00 77 mm[Hg] Weight Measured 2020-09-14 11:10:00 177.60 pounds Height Measured 2020-09-14 11:10:00 61.00 inches Body Temperature 2020-09-14 11:10:00 98.30 degrees Heart Rate 2020-09-14 11:10:00 98.00 /min Respiratory Rate 2020-09-14 11:10:00 BP Systolic 2019-08-18 14:22:00 129 mm[Hg] BP Diastolic 2019-08-18 14:22:00 83 mm[Hg] Weight Measured 2019-08-18 14:22:00 134.20 pounds Height Measured 2019-08-18 14:22:00 61.00 inches Body Temperature 2019-08-18 14:22:00 Heart Rate 2019-08-18 14:22:00 89.00 /min Respiratory Rate 2019-08-18 14:22:00 BP Systolic 2019-08-04 10:39:00 138 mm[Hg] BP Diastolic 2019-08-04 10:39:00 93 mm[Hg] Weight Measured 2019-08-04 10:39:00 136.40 pounds Height Measured 2019-08-04 10:39:00 61.00 inches Body Temperature 2019-08-04 10:39:00 98.10 degrees Heart Rate 2019-08-04 10:39:00 111.00 /min Respiratory Rate 2019-08-04 10:39:00 BP Systolic 2017-10-10 11:11:00 113 mm[Hg] BP Diastolic 2017-10-10 11:11:00 78 mm[Hg] Weight Measured 2017-10-10 11:11:00 184.60 pounds Height Measured 2017-10-10 11:11:00 61.00 inches Body Temperature 2017-10-10 11:11:00 97.90 degrees Heart Rate 2017-10-10 11:11:00 77.00 /min Respiratory Rate 2017-10-10 11:11:00 Procedures Procedure Date / Time Performed Performing Clinician [facility] e REFERRAL- 2022-04-25 05:01:00 Doctor Unassigned, No [employer] s[facility] REQUEST/RESPONSE Name [facility] REFERRAL- 2020-12-10 05:01:00 Doctor Unassigned, [facility] [facility]RESPONSE Name [facility] Plan of Care Planned Activity Planned Date Details Comments Source Goal Plan of Care Note [code = 61032-2] Goal Plan of Care Note [code = 27592-7] Goal Plan of Care Note [code = 27045-3] Goal Plan of Care Note [code = 75131-6] Goal Plan of Care Note [code = 30101-7] Goal Plan of Care Note [code = 83430-8] Goal Plan of Care Note [code = 09387-4] Goal Plan of Care Note [code = 86695-0] Goal Plan of Care Note [code = 18173-8] Goal Plan of Care Note [code = 62019-7] Goal Plan of Care Note [code = 22466-5] Goal Plan of Care Note [code = 98971-0] Goal Plan of Care Note [code = 18301-8] Goal Plan of Care Note [code = 98270-4] Goal Plan of Care Note [code = 35880-8] Goal Plan of Care Note [code = 39867-5] Goal Plan of Care Note [code = 22868-4] Goal Plan of Care Note [code = 60835-4] Goal Plan of Care Note [code = 70520-4] Goal Plan of Care Note [code = 48577-7] Goal Plan of Care Note [code = 66446-9] Goal Plan of Care Note [code = 25477-3] Goal Plan of Care Note [code = 45165-2] Goal Plan of Care Note [code = 94019-4] Goal Plan of Care Note [code = 12739-8] Goal Plan of Care Note [code = 23562-6] Goal Plan of Care Note [code = 60548-8] Goal Plan of Care Note [code = 49508-7] Goal Plan of Care Note [code = 11352-8] Goal Plan of Care Note [code = 85019-8] Goal Plan of Care Note [code = 27178-3] Goal Plan of Care Note [code = 29663-1] Goal Plan of Care Note [code = 21397-6] Goal Plan of Care Note [code = 32557-7] Goal Plan of Care Note [code = 24403-5] Goal Plan of Care Note [code = 51390-6] Goal Plan of Care Note [code = 53514-5] Goal Plan of Care Note [code = 99870-4] Goal Plan of Care Note [code = 23917-0] Goal Plan of Care Note [code = 30189-2] Goal Plan of Care Note [code = 27756-3] Goal Plan of Care Note [code = 21234-4] Goal Plan of Care Note [code = 90807-8] Goal Plan of Care Note [code = 91773-0] Goal Plan of Care Note [code = 09894-8] Goal Plan of Care Note [code = 63139-3] Goal Plan of Care Note [code = 64997-4] Goal Plan of Care Note [code = 70873-0] Goal Plan of Care Note [code = 90366-4] Goal Plan of Care Note [code = 86302-7] Goal Plan of Care Note [code = 37132-5] Goal Plan of Care Note [code = 49305-0] Goal Plan of Care Note [code = 09892-4] Goal Plan of Care Note [code = 32489-4] Goal Plan of Care Note [code = 66387-8] Goal Plan of Care Note [code = 78020-9] Goal Plan of Care Note [code = 75285-8] Goal Plan of Care Note [code = 79954-1] Goal Plan of Care Note [code = 08292-9] Goal Plan of Care Note [code = 08783-9] Goal Plan of Care Note [code = 20847-4] Goal Plan of Care Note [code = 24863-1] Goal Plan of Care Note [code = 25971-8] Goal Plan of Care Note [code = 63539-7] Goal Plan of Care Note [code = 47928-4] Goal Plan of Care Note [code = 90507-4] Goal Plan of Care Note [code = 03655-1] Goal Plan of Care Note [code = 00612-1] Goal Plan of Care Note [code = 71345-0] Goal Plan of Care Note [code = 63399-5] Goal Plan of Care Note [code = 88575-5] Goal Plan of Care Note [code = 90910-0] Goal Plan of Care Note [code = 53901-8] Goal Plan of Care Note [code = 38631-0] Encounters Start End Encounter Admission Attending Care Care Encounter Source Date/Time Date/Time Type Type Clinicians Facility Department ID 2022-04-25 2022-04-25 Orders Doctor HE [id number] [facility] 00:00:00 00:00:00 Only Unassigned, BOBBY 350.1.13.10 [facility] [place] [facility] 4.2.7.2.686 Vicente as [phone] [facility] corinne 009 Branch 2022-04-25 2022-04-25 Outpatient [id number] 00:00:00 00:00:00 Visit 51eb-4513 1eb-4513-9 -900d-65a 00d-65a7b8 [id number] 7987d4 2022-04-19 2022-04-19 Outpatient [id number]- [id number] 00:00:00 00:00:00 Visit 3320-40f1 320-40f1-9 -9670-6f1 670-2w263j 86w01k1kz 59d8cd 2021-04-22 2021-04-22 Outpatient R FELICE BRITO [facility] 10 [id number] [facility] 15:30:00 15:30:00 FELICE BRITO i [facility] 2020-12-10 2020-12-10 Orders Doctor YING Levy.[id number] Univers 00:00:00 00:00:00 Only Unassigned, BOBBY 350.1.13.10 it[facility] [place] [facility] 4.2.7.2.686 Vicente as [phone] [address] 2020-12-10 2020-12-10 Orders Doctor YING Ariza2.840.114 [id number] 00:00:00 00:00:00 Only Unassigned, BOBBY 350.1.13.10 [place] [facility] [phone] 009 Results Test Description Test Time Test Comments Results Result Comments Source CHRISTIANNE NON-REFLEX TO TITER 2022-04-27 10:46:04 Test Item Value Reference Range Interpretation Comme nts ANTI-NUCLEAR ANTIBODIES (test NEGATIVE NEGATIVE METHODOLOGY IS INDIRECT code = 3506) IMMUNOFLUORESCE NT ASSAY (IFA) WITH HUMAN EPITHELIA L (HEP-2) CELL LINE SUBSTRATE. CCP [id number] 07:35:06 Test Item Value Reference Range Interpretation Comments CCP IgG (test <0.5 U/ML <3.0 INTERPRET JOSE GUADALUPE code = 85166) INFORMATION * INTERPRETATION RESULT NEGATIVE <3.0 U /ML POSITIVE >=3.0 U/ML UNLE SS OTHERWISE INDICATED, ALL TESTING PERFORMED [facility] [address] [place] [id number] [place] DIRECTOR: Denis MARSHALLIA NUMBER [id number] [facility] ACCREDITATION N O. [id number] VITAMIN [id number] 06:36:16 Test Item Value Reference Range Interpretation Comments VITAMIN B-12 (test code = 2840) 275 PG/ML 200-950 SEDIMENTATION [id number] 06:13:21 Test Item Value Reference Range Interpretation Comments SEDIMENTATION RATE (test code = 2 MM/HOUR 0-20 7) COMPREHENSIVE METABOLIC [id number] 05:58:14 Test Item Value Reference Range Interpretation Comments GLUCOSE (test code = 87 MG/DL 70-99 2216) BUN (test code = 7 MG/DL 6-20 2207) CREATININE (test 0.78 MG/DL 0.60-1.30 code = 221) eGFR (2020 CKD-EPI) 101 >60 (test code = 38574) ML/MIN/1.73 CALC BUN/CREAT (test 9 RATIO 6-28 code = 2235) SODIUM (test code = 136 MEQ/L 560-625 2580) POTASSIUM (test code 4.0 MEQ/L 3.5-5.4 = 2227) CHLORIDE (test code 103 MEQ/L 95-107 = 221) CARBON DIOXIDE (test 24 MEQ/L 19-31 code = 2206) CALCIUM (test code = 9.2 MG/DL 8.5-10.5 2208) PROTEIN, TOTAL (test 6.5 G/DL 6.1-8.3 code = 2229) ALBUMIN (test code = 4.3 G/DL 3.5-5.2 2200) CALC GLOBULIN (test 2.2 G/DL 1.9-3.7 code = 2240) CALC A/G RATIO (test 2.0 RATIO 1.0-2.6 code = 2234) BILIRUBIN, TOTAL 0.2 MG/DL See_Comment [Automated message] (test code = 2207) The syste m which generated this result transmit martín reference range : <=1.2. The refe rence range was not u sed to interpret th is result as normal/abnormal . ALKALINE PHOSPHATASE 48 U/L 40-112 (test code = 2204) AST (test code = 11 U/L 9-40 2217) ALT (test code = 12 U/L 5-40 2218) VITAMIN D, 25 [id number] 00:00:00 Test Item Value Reference Range Interpretation Comments VITAMIN D, 25 OH (test code = 4958) 17 NG/ML COMPREHENSIVE METABOLIC [id number] 00:00:00 Test Item Value Reference Range Interpretation Comments GLUCOSE (test code = 2217) 84 MG/DL BUN (test code = 2208) 7 MG/DL CREATININE (test code = 2214) 0.80 MG/DL eGFR AMER. (test code 111 ML/MIN/1.73 = 78284) eGFR NON- AMER. (test 96 ML/MIN/1.73 code = 05318) CALC BUN/CREAT (test code = 9 RATIO 2235) SODIUM (test code = 2231) 143 MEQ/L POTASSIUM (test code = 2228) 4.1 MEQ/L CHLORIDE (test code = 2215) 108 MEQ/L CARBON DIOXIDE (test code = 23 MEQ/L 2205) CALCIUM (test code = 2209) 8.9 MG/DL PROTEIN, TOTAL (test code = 6.5 G/DL 2228) ALBUMIN (test code = 2201) 4.4 G/DL CALC GLOBULIN (test code = 2.1 G/DL 0) CALC A/G RATIO (test code = 2.1 RATIO 4) BILIRUBIN, TOTAL (test code = <0.2 MG/DL 2206) ALKALINE PHOSPHATASE (test 60 U/L code = 2204) AST (test code = 2218) 14 U/L ALT (test code = 2219) 14 U/L CBC W/AUTO [id number] 00:00:00 Test Item Value Reference Range Interpretation Comments WBC (test code = 1001) 4.6 K/UL RBC (test code = 1002) 4.75 M/UL HEMOGLOBIN (test code = 1003) 14.1 G/DL HEMATOCRIT (test code = 1004) 41.3 % MCV (test code = 1005) 86.9 fL MCH (test code = 1006) 29.7 PG MCHC (test code = 1007) 34.1 G/DL RDW (test code = 1038) 13.2 % NEUTROPHILS (test code = 1008) 44.2 % LYMPHOCYTES (test code = 1010) 30.3 % MONOCYTES (test code = 1011) 8.8 % EOSINOPHILS (test code = 1012) 14.5 % BASOPHILS (test code = 1013) 0.9 % IMMATURE GRANULOCYTES (test 1.3 % code = 1036) NUCLEATED RBCS (test code = 0.0 /100WBC'S 1065) PLATELET COUNT (test code = 291 K/UL 1015) ABSOLUTE NEUTROPHILS (test code 2.01 K/UL = 1066) ABSOLUTE LYMPHOCYTES (test code 1.38 K/UL = 1067) ABSOLUTE MONOCYTES (test code = 0.40 K/UL 1068) ABSOLUTE EOSINOPHILS (test code 0.66 K/UL = 1040) ABSOLUTE BASOPHILS (test code = 0.04 K/UL 1069) ABS IMMATURE GRANULOCYTES (test 0.06 K/UL code = 1020) ABS NUCLEATED RBCS (test code = 0.00 K/UL 10541) CBC W/AUTO [id number] 00:00:00 Test Item Value Reference Range Interpretation Comments WBC (test code = 1001) 4.6 K/UL RBC (test code = 1002) 4.75 M/UL HEMOGLOBIN (test code = 1003) 14.1 G/DL HEMATOCRIT (test code = 1004) 41.3 % MCV (test code = 1005) 86.9 fL MCH (test code = 1006) 29.7 PG MCHC (test code = 1007) 34.1 G/DL RDW (test code = 1038) 13.2 % NEUTROPHILS (test code = 1008) 44.2 % LYMPHOCYTES (test code = 1010) 30.3 % MONOCYTES (test code = 1011) 8.8 % EOSINOPHILS (test code = 1012) 14.5 % BASOPHILS (test code = 1013) 0.9 % IMMATURE GRANULOCYTES (test 1.3 % code = 1036) NUCLEATED RBCS (test code = 0.0 /100WBC'S 1065) PLATELET COUNT (test code = 291 K/UL 1015) ABSOLUTE NEUTROPHILS (test code 2.01 K/UL = 1066) ABSOLUTE LYMPHOCYTES (test code 1.38 K/UL = 1067) ABSOLUTE MONOCYTES (test code = 0.40 K/UL 1068) ABSOLUTE EOSINOPHILS (test code 0.66 K/UL = 1040) ABSOLUTE BASOPHILS (test code = 0.04 K/UL 1069) ABS IMMATURE GRANULOCYTES (test 0.06 K/UL code = 1020) ABS NUCLEATED RBCS (test code = 0.00 K/UL 50723) LIPID [id number] 00:00:00 Test Item Value Reference Range Interpretation Comments CHOLESTEROL (test code = 2210) 136 MG/DL TRIGLYCERIDES (test code = 2232) 82 MG/DL HDL CHOLESTEROL (test code = 2220) 42 MG/DL CALC LDL CHOL (test code = 2237) 78 MG/DL RISK RATIO LDL/HDL (test code = 1.86 RATIO 2238) [id number] 00:00:00 Test Item Value Reference Range Interpretation Comments TSH, THIRD GENERATION (test code 1.010 UIU/ML = 2821) [id number] 00:00:00 Test Item Value Reference Range Interpretation Comments TSH, THIRD GENERATION (test code 1.010 UIU/ML = 2821) CHRISTIANNE (ANTI-NUCLEAR AB) WITH REFLEX [id number] 00:00:00 Test Item Value Reference Range Interpretation Comments ANTI-NUCLEAR ANTIBODIES (test code = NEGATIVE 3506) VITAMIN D, 25 [id number] 00:00:00 Test Item Value Reference Range Interpretation Comments VITAMIN D, 25 OH (test code = 4958) 17 NG/ML VITAMIN D, 25 [id number] 00:00:00 Test Item Value Reference Range Interpretation Comments VITAMIN D, 25 OH (test code = 4958) 17 NG/ML COMPREHENSIVE METABOLIC [id number] 00:00:00 Test Item Value Reference Range Interpretation Comments GLUCOSE (test code = 2217) 84 MG/DL BUN (test code = 2208) 7 MG/DL CREATININE (test code = 2214) 0.80 MG/DL eGFR AMER. (test code 111 ML/MIN/1.73 = 36953) eGFR NON- AMER. (test 96 ML/MIN/1.73 code = 16377) CALC BUN/CREAT (test code = 9 RATIO 2235) SODIUM (test code = 2231) 143 MEQ/L POTASSIUM (test code = 2228) 4.1 MEQ/L CHLORIDE (test code = 2215) 108 MEQ/L CARBON DIOXIDE (test code = 23 MEQ/L 2205) CALCIUM (test code = 2209) 8.9 MG/DL PROTEIN, TOTAL (test code = 6.5 G/DL 2228) ALBUMIN (test code = 2201) 4.4 G/DL CALC GLOBULIN (test code = 2.1 G/DL 2240) CALC A/G RATIO (test code = 2.1 RATIO 2234) BILIRUBIN, TOTAL (test code = <0.2 MG/DL 2206) ALKALINE PHOSPHATASE (test 60 U/L code = 2204) AST (test code = 2218) 14 U/L ALT (test code = 2219) 14 U/L COMPREHENSIVE METABOLIC [id number] 00:00:00 Test Item Value Reference Range Interpretation Comments GLUCOSE (test code = 2217) 84 MG/DL BUN (test code = 2208) 7 MG/DL CREATININE (test code = 2214) 0.80 MG/DL eGFR AMER. (test code 111 ML/MIN/1.73 = 54851) eGFR NON- AMER. (test 96 ML/MIN/1.73 code = 24255) CALC BUN/CREAT (test code = 9 RATIO 2235) SODIUM (test code = 2231) 143 MEQ/L POTASSIUM (test code = 2228) 4.1 MEQ/L CHLORIDE (test code = 2215) 108 MEQ/L CARBON DIOXIDE (test code = 23 MEQ/L 2205) CALCIUM (test code = 2209) 8.9 MG/DL PROTEIN, TOTAL (test code = 6.5 G/DL 2228) ALBUMIN (test code = 2201) 4.4 G/DL CALC GLOBULIN (test code = 2.1 G/DL 2240) CALC A/G RATIO (test code = 2.1 RATIO 2234) BILIRUBIN, TOTAL (test code = <0.2 MG/DL 2206) ALKALINE PHOSPHATASE (test 60 U/L code = 2204) AST (test code = 2218) 14 U/L ALT (test code = 2219) 14 U/L CBC W/AUTO [id number] 00:00:00 Test Item Value Reference Range Interpretation Comments WBC (test code = 1001) 4.6 K/UL RBC (test code = 1002) 4.75 M/UL HEMOGLOBIN (test code = 1003) 14.1 G/DL HEMATOCRIT (test code = 1004) 41.3 % MCV (test code = 1005) 86.9 fL MCH (test code = 1006) 29.7 PG MCHC (test code = 1007) 34.1 G/DL RDW (test code = 1038) 13.2 % NEUTROPHILS (test code = 1008) 44.2 % LYMPHOCYTES (test code = 1010) 30.3 % MONOCYTES (test code = 1011) 8.8 % EOSINOPHILS (test code = 1012) 14.5 % BASOPHILS (test code = 1013) 0.9 % IMMATURE GRANULOCYTES (test 1.3 % code = 1036) NUCLEATED RBCS (test code = 0.0 /100WBC'S 1065) PLATELET COUNT (test code = 291 K/UL 1015) ABSOLUTE NEUTROPHILS (test code 2.01 K/UL = 1066) ABSOLUTE LYMPHOCYTES (test code 1.38 K/UL = 1067) ABSOLUTE MONOCYTES (test code = 0.40 K/UL 1068) ABSOLUTE EOSINOPHILS (test code 0.66 K/UL = 1040) ABSOLUTE BASOPHILS (test code = 0.04 K/UL 1069) ABS IMMATURE GRANULOCYTES (test 0.06 K/UL code = 1020) ABS NUCLEATED RBCS (test code = 0.00 K/UL 08930) CBC W/AUTO [id number] 00:00:00 Test Item Value Reference Range Interpretation Comments WBC (test code = 1001) 4.6 K/UL RBC (test code = 1002) 4.75 M/UL HEMOGLOBIN (test code = 1003) 14.1 G/DL HEMATOCRIT (test code = 1004) 41.3 % MCV (test code = 1005) 86.9 fL MCH (test code = 1006) 29.7 PG MCHC (test code = 1007) 34.1 G/DL RDW (test code = 1038) 13.2 % NEUTROPHILS (test code = 1008) 44.2 % LYMPHOCYTES (test code = 1010) 30.3 % MONOCYTES (test code = 1011) 8.8 % EOSINOPHILS (test code = 1012) 14.5 % BASOPHILS (test code = 1013) 0.9 % IMMATURE GRANULOCYTES (test 1.3 % code = 1036) NUCLEATED RBCS (test code = 0.0 /100WBC'S 1065) PLATELET COUNT (test code = 291 K/UL 1015) ABSOLUTE NEUTROPHILS (test code 2.01 K/UL = 1066) ABSOLUTE LYMPHOCYTES (test code 1.38 K/UL = 1067) ABSOLUTE MONOCYTES (test code = 0.40 K/UL 1068) ABSOLUTE EOSINOPHILS (test code 0.66 K/UL = 1040) ABSOLUTE BASOPHILS (test code = 0.04 K/UL 1069) ABS IMMATURE GRANULOCYTES (test 0.06 K/UL code = 1020) ABS NUCLEATED RBCS (test code = 0.00 K/UL 20251) CBC W/AUTO [id number] 00:00:00 Test Item Value Reference Range Interpretation Comments WBC (test code = 1001) 4.6 K/UL RBC (test code = 1002) 4.75 M/UL HEMOGLOBIN (test code = 1003) 14.1 G/DL HEMATOCRIT (test code = 1004) 41.3 % MCV (test code = 1005) 86.9 fL MCH (test code = 1006) 29.7 PG MCHC (test code = 1007) 34.1 G/DL RDW (test code = 1038) 13.2 % NEUTROPHILS (test code = 1008) 44.2 % LYMPHOCYTES (test code = 1010) 30.3 % MONOCYTES (test code = 1011) 8.8 % EOSINOPHILS (test code = 1012) 14.5 % BASOPHILS (test code = 1013) 0.9 % IMMATURE GRANULOCYTES (test 1.3 % code = 1036) NUCLEATED RBCS (test code = 0.0 /100WBC'S 1065) PLATELET COUNT (test code = 291 K/UL 1015) ABSOLUTE NEUTROPHILS (test code 2.01 K/UL = 1066) ABSOLUTE LYMPHOCYTES (test code 1.38 K/UL = 1067) ABSOLUTE MONOCYTES (test code = 0.40 K/UL 1068) ABSOLUTE EOSINOPHILS (test code 0.66 K/UL = 1040) ABSOLUTE BASOPHILS (test code = 0.04 K/UL 1069) ABS IMMATURE GRANULOCYTES (test 0.06 K/UL code = 1020) ABS NUCLEATED RBCS (test code = 0.00 K/UL 14076) LIPID [id number] 00:00:00 Test Item Value Reference Range Interpretation Comments CHOLESTEROL (test code = 2210) 136 MG/DL TRIGLYCERIDES (test code = 2232) 82 MG/DL HDL CHOLESTEROL (test code = 2220) 42 MG/DL CALC LDL CHOL (test code = 2237) 78 MG/DL RISK RATIO LDL/HDL (test code = 1.86 RATIO 2238) LIPID [id number] 00:00:00 Test Item Value Reference Range Interpretation Comments CHOLESTEROL (test code = 2210) 136 MG/DL TRIGLYCERIDES (test code = 2232) 82 MG/DL HDL CHOLESTEROL (test code = 2220) 42 MG/DL CALC LDL CHOL (test code = 2237) 78 MG/DL RISK RATIO LDL/HDL (test code = 1.86 RATIO 2238) [id number] 00:00:00 Test Item Value Reference Range Interpretation Comments TSH, THIRD GENERATION (test code 1.010 UIU/ML = 2821) [id number] 00:00:00 Test Item Value Reference Range Interpretation Comments TSH, THIRD GENERATION (test code 1.010 UIU/ML = 2821) [id number] 00:00:00 Test Item Value Reference Range Interpretation Comments TSH, THIRD GENERATION (test code 1.010 UIU/ML = 2821) CHRISTIANNE (ANTI-NUCLEAR AB) WITH REFLEX [id number] 00:00:00 Test Item Value Reference Range Interpretation Comments ANTI-NUCLEAR ANTIBODIES (test code = NEGATIVE 3506) CHRISTIANNE (ANTI-NUCLEAR AB) WITH REFLEX [id number] 00:00:00 Test Item Value Reference Range Interpretation Comments ANTI-NUCLEAR ANTIBODIES (test code = NEGATIVE 3506) SARS-CoV-2 (COVID-19) by RT-PCR (HIGH RISK)2021-04-30 00:00:00 Test Item Value Reference Range Interpretation Comments SARS-CoV-2 INTERPRETATION NEGATIVE (test code = 47481) SOURCE (test code = 41507) NASOPHARYNGEAL SARS-CoV-2 (COVID-19) by RT-PCR (HIGH RISK)2021-04-30 00:00:00 Test Item Value Reference Range Interpretation Comments SARS-CoV-2 INTERPRETATION NEGATIVE (test code = 43433) SOURCE (test code = 83447) NASOPHARYNGEAL SARS-CoV-2 (COVID-19) by RT-PCR (HIGH RISK)2021-04-30 00:00:00 Test Item Value Reference Range Interpretation Comments SARS-CoV-2 INTERPRETATION NEGATIVE (test code = 93718) SOURCE (test code = 48836) NASOPHARYNGEAL GC AND CHLAMYDIA AMPLIFIED, [id number] 00:00:00 Test Item Value Reference Range Interpretation Comments GONORRHEA, TMA (test code = 34810) NEGATIVE CHLAMYDIA, TMA (test code = 37782) NEGATIVE PAP TEST, THINPREP, [id number] 00:00:00 Test Item Value Reference Range Interpretation Comments SOURCE: (test code = Cervical/Endocervical 8001) SLIDES: (test code = 1 8011) LMP: (test code = 8021) 12/14/2020 SPECIMEN ADEQUACY: (test (NOTE) code = 73189) INTERPRETATION: (test NILM/NO EPITH. code = 47930) ABNORMALITY;SEE BELOW CONTACT AGENT: (test AKOSUA Bee(ASCP) code = 8101) LOCATION: (test code = (NOTE) 10749) CPT: (test code = 8140) (NOTE) HPV HIGH RISK WITH GENOTYPE, [id number] 00:00:00 Test Item Value Reference Range Interpretation Comments HPV HIGH RISK INTERP (test code = NEGATIVE 03576) HPV 16 (test code = 46048) NEGATIVE HPV 18 (test code = 20889) NEGATIVE HPV, HR, OTHER GENOTYPES (test code NEGATIVE = 22099) GC AND CHLAMYDIA AMPLIFIED, [id number] 00:00:00 Test Item Value Reference Range Interpretation Comments GONORRHEA, TMA (test code = 76586) NEGATIVE CHLAMYDIA, TMA (test code = 43479) NEGATIVE GC AND CHLAMYDIA AMPLIFIED, [id number] 00:00:00 Test Item Value Reference Range Interpretation Comments GONORRHEA, TMA (test code = 29638) NEGATIVE CHLAMYDIA, TMA (test code = 12885) NEGATIVE PAP TEST, THINPREP, [id number] 00:00:00 Test Item Value Reference Range Interpretation Comments SOURCE: (test code = Cervical/Endocervical 8001) SLIDES: (test code = 1 8011) LMP: (test code = 8021) 12/14/2020 SPECIMEN ADEQUACY: (test (NOTE) code = 16581) INTERPRETATION: (test NILM/NO EPITH. code = 94371) ABNORMALITY;SEE BELOW CONTACT AGENT: (test AKOSUA Bee(ASCP) code = 8101) LOCATION: (test code = (NOTE) 08289) CPT: (test code = 8140) (NOTE) PAP TEST, THINPREP, [id number] 00:00:00 Test Item Value Reference Range Interpretation Comments SOURCE: (test code = Cervical/Endocervical 8001) SLIDES: (test code = 1 8011) LMP: (test code = 8021) 12/14/2020 SPECIMEN ADEQUACY: (test (NOTE) code = 67690) INTERPRETATION: (test NILM/NO EPITH. code = 19945) ABNORMALITY;SEE BELOW CONTACT AGENT: (test AKOSUA Bee(ASCP) code = 8101) LOCATION: (test code = (NOTE) 37683) CPT: (test code = 8140) (NOTE) HPV HIGH RISK WITH GENOTYPE, [id number] 00:00:00 Test Item Value Reference Range Interpretation Comments HPV HIGH RISK INTERP (test code = NEGATIVE 47103) HPV 16 (test code = 86752) NEGATIVE HPV 18 (test code = 18077) NEGATIVE HPV, HR, OTHER GENOTYPES (test code NEGATIVE = 63430) HPV HIGH RISK WITH GENOTYPE, [id number] 00:00:00 Test Item Value Reference Range Interpretation Comments HPV HIGH RISK INTERP (test code = NEGATIVE 31013) HPV 16 (test code = 72915) NEGATIVE HPV 18 (test code = 63428) NEGATIVE HPV, HR, OTHER GENOTYPES (test code NEGATIVE = 44031) VAGINAL PATHOGENS DNA [id number] 00:00:00 Test Item Value Reference Range Interpretation Comments BRIANNA SPECIES (test code = ) NEGATIVE G. VAGINALIS (test code = ) POSITIVE T. VAGINALIS (test code = ) NEGATIVE HIV AB/AG COMBO RFLX [id number] 00:00:00 Test Item Value Reference Range Interpretation Comments HIV 1/2 4TH GEN, RFLX CONF (test NON-REACTIVE code = 3514) [id number] 00:00:00 Test Item Value Reference Range Interpretation Comments RPR RESULT (test code = NON-REACTIVE 3501) RPR TITER (test code = 3500) NOT INDIC. TITER [id number] 00:00:00 Test Item Value Reference Range Interpretation Comments RPR RESULT (test code = NON-REACTIVE 3501) RPR TITER (test code = 3500) NOT INDIC. TITER VAGINAL PATHOGENS DNA [id number] 00:00:00 Test Item Value Reference Range Interpretation Comments BRIANNA SPECIES (test code = ) NEGATIVE G. VAGINALIS (test code = 81176) POSITIVE T. VAGINALIS (test code = 75280) NEGATIVE VAGINAL PATHOGENS DNA [id number] 00:00:00 Test Item Value Reference Range Interpretation Comments BRIANNA SPECIES (test code = ) NEGATIVE G. VAGINALIS (test code = ) POSITIVE T. VAGINALIS (test code = ) NEGATIVE HIV AB/AG COMBO RFLX [id number] 00:00:00 Test Item Value Reference Range Interpretation Comments HIV 1/2 4TH GEN, RFLX CONF (test NON-REACTIVE code = 3514) HIV AB/AG COMBO RFLX [id number] 00:00:00 Test Item Value Reference Range Interpretation Comments HIV 1/2 4TH GEN, RFLX CONF (test NON-REACTIVE code = 3514) [id number] 00:00:00 Test Item Value Reference Range Interpretation Comments RPR RESULT (test code = NON-REACTIVE 3501) RPR TITER (test code = 3500) NOT INDIC. TITER [id number] 00:00:00 Test Item Value Reference Range Interpretation Comments RPR RESULT (test code = NON-REACTIVE 3501) RPR TITER (test code = 3500) NOT INDIC. TITER [id number] 00:00:00 Test Item Value Reference Range Interpretation Comments RPR RESULT (test code = NON-REACTIVE 3501) RPR TITER (test code = 3500) NOT INDIC. TITER CK, TOTAL [ADDED]2020-05-09 00:00:00 Test Item Value Reference Range Interpretation Comments CK, TOTAL (test code = 2013) 131 U/L NOTE: [ADDED]2020-05-09 00:00:00 Test Item Value Reference Range Interpretation Comments NOTE: (test code = 998) (NOTE) CK, TOTAL [ADDED]2020-05-09 00:00:00 Test Item Value Reference Range Interpretation Comments CK, TOTAL (test code = 2013) 131 U/L CK, TOTAL [ADDED]2020-05-09 00:00:00 Test Item Value Reference Range Interpretation Comments CK, TOTAL (test code = 2013) 131 U/L NOTE: [ADDED]2020-05-09 00:00:00 Test Item Value Reference Range Interpretation Comments NOTE: (test code = 998) (NOTE) CBC W/AUTO [id number] 00:00:00 Test Item Value Reference Range Interpretation Comments WBC (test code = 1001) 6.2 K/UL RBC (test code = 1002) 4.39 M/UL HEMOGLOBIN (test code = 1003) 13.4 G/DL HEMATOCRIT (test code = 1004) 39.4 % MCV (test code = 1005) 89.7 fL MCH (test code = 1006) 30.5 PG MCHC (test code = 1007) 34.0 G/DL RDW (test code = 1038) 12.7 % NEUTROPHILS (test code = 1008) 56.9 % LYMPHOCYTES (test code = 1010) 33.3 % MONOCYTES (test code = 1011) 6.4 % EOSINOPHILS (test code = 1012) 2.6 % BASOPHILS (test code = 1013) 0.8 % PLATELET COUNT (test code = 1015) 299 K/UL CBC W/AUTO [id number] 00:00:00 Test Item Value Reference Range Interpretation Comments WBC (test code = 1001) 6.2 K/UL RBC (test code = 1002) 4.39 M/UL HEMOGLOBIN (test code = 1003) 13.4 G/DL HEMATOCRIT (test code = 1004) 39.4 % MCV (test code = 1005) 89.7 fL MCH (test code = 1006) 30.5 PG MCHC (test code = 1007) 34.0 G/DL RDW (test code = 1038) 12.7 % NEUTROPHILS (test code = 1008) 56.9 % LYMPHOCYTES (test code = 1010) 33.3 % MONOCYTES (test code = 1011) 6.4 % EOSINOPHILS (test code = 1012) 2.6 % BASOPHILS (test code = 1013) 0.8 % PLATELET COUNT (test code = 1015) 299 K/UL COMPREHENSIVE METABOLIC [id number] 00:00:00 Test Item Value Reference Range Interpretation Comments GLUCOSE (test code = 2217) 71 MG/DL BUN (test code = 2208) 14 MG/DL CREATININE (test code = 2214) 0.76 MG/DL eGFR AMER. (test code 119 ML/MIN/1.73 = 62476) eGFR NON- AMER. (test 102 ML/MIN/1.73 code = 78378) CALC BUN/CREAT (test code = 18 RATIO 2235) SODIUM (test code = 2231) 138 MEQ/L POTASSIUM (test code = 2228) 4.4 MEQ/L CHLORIDE (test code = 2215) 103 MEQ/L CARBON DIOXIDE (test code = 24 MEQ/L 2205) CALCIUM (test code = 2209) 8.5 MG/DL PROTEIN, TOTAL (test code = 6.5 G/DL 2228) ALBUMIN (test code = 2201) 4.2 G/DL CALC GLOBULIN (test code = 2.3 G/DL 2239) CALC A/G RATIO (test code = 1.8 RATIO 2233) BILIRUBIN, TOTAL (test code = 0.3 MG/DL 2206) ALKALINE PHOSPHATASE (test 48 U/L code = 2204) AST (test code = 2218) 31 U/L ALT (test code = 2219) 30 U/L [id number] 00:00:00 Test Item Value Reference Range Interpretation Comments TSH, THIRD GENERATION (test code 1.530 UIU/ML = 2821) [id number] 00:00:00 Test Item Value Reference Range Interpretation Comments TSH, THIRD GENERATION (test code 1.530 UIU/ML = 2821) CBC W/AUTO [id number] 00:00:00 Test Item Value Reference Range Interpretation Comments WBC (test code = 1001) 6.2 K/UL RBC (test code = 1002) 4.39 M/UL HEMOGLOBIN (test code = 1003) 13.4 G/DL HEMATOCRIT (test code = 1004) 39.4 % MCV (test code = 1005) 89.7 fL MCH (test code = 1006) 30.5 PG MCHC (test code = 1007) 34.0 G/DL RDW (test code = 1038) 12.7 % NEUTROPHILS (test code = 1008) 56.9 % LYMPHOCYTES (test code = 1010) 33.3 % MONOCYTES (test code = 1011) 6.4 % EOSINOPHILS (test code = 1012) 2.6 % BASOPHILS (test code = 1013) 0.8 % PLATELET COUNT (test code = 1015) 299 K/UL CBC W/AUTO [id number] 00:00:00 Test Item Value Reference Range Interpretation Comments WBC (test code = 1001) 6.2 K/UL RBC (test code = 1002) 4.39 M/UL HEMOGLOBIN (test code = 1003) 13.4 G/DL HEMATOCRIT (test code = 1004) 39.4 % MCV (test code = 1005) 89.7 fL MCH (test code = 1006) 30.5 PG MCHC (test code = 1007) 34.0 G/DL RDW (test code = 1038) 12.7 % NEUTROPHILS (test code = 1008) 56.9 % LYMPHOCYTES (test code = 1010) 33.3 % MONOCYTES (test code = 1011) 6.4 % EOSINOPHILS (test code = 1012) 2.6 % BASOPHILS (test code = 1013) 0.8 % PLATELET COUNT (test code = 1015) 299 K/UL CBC W/AUTO [id number] 00:00:00 Test Item Value Reference Range Interpretation Comments WBC (test code = 1001) 6.2 K/UL RBC (test code = 1002) 4.39 M/UL HEMOGLOBIN (test code = 1003) 13.4 G/DL HEMATOCRIT (test code = 1004) 39.4 % MCV (test code = 1005) 89.7 fL MCH (test code = 1006) 30.5 PG MCHC (test code = 1007) 34.0 G/DL RDW (test code = 1038) 12.7 % NEUTROPHILS (test code = 1008) 56.9 % LYMPHOCYTES (test code = 1010) 33.3 % MONOCYTES (test code = 1011) 6.4 % EOSINOPHILS (test code = 1012) 2.6 % BASOPHILS (test code = 1013) 0.8 % PLATELET COUNT (test code = 1015) 299 K/UL COMPREHENSIVE METABOLIC [id number] 00:00:00 Test Item Value Reference Range Interpretation Comments GLUCOSE (test code = 2217) 71 MG/DL BUN (test code = 2208) 14 MG/DL CREATININE (test code = 2214) 0.76 MG/DL eGFR AMER. (test code 119 ML/MIN/1.73 = 99151) eGFR NON- AMER. (test 102 ML/MIN/1.73 code = 48054) CALC BUN/CREAT (test code = 18 RATIO 2235) SODIUM (test code = 2231) 138 MEQ/L POTASSIUM (test code = 2228) 4.4 MEQ/L CHLORIDE (test code = 2215) 103 MEQ/L CARBON DIOXIDE (test code = 24 MEQ/L 2206) CALCIUM (test code = 2209) 8.5 MG/DL PROTEIN, TOTAL (test code = 6.5 G/DL 222) ALBUMIN (test code = 2201) 4.2 G/DL CALC GLOBULIN (test code = 2.3 G/DL 2240) CALC A/G RATIO (test code = 1.8 RATIO 2234) BILIRUBIN, TOTAL (test code = 0.3 MG/DL 2207) ALKALINE PHOSPHATASE (test 48 U/L code = 2204) AST (test code = 2218) 31 U/L ALT (test code = 2219) 30 U/L COMPREHENSIVE METABOLIC [id number] 00:00:00 Test Item Value Reference Range Interpretation Comments GLUCOSE (test code = 2217) 71 MG/DL BUN (test code = 2208) 14 MG/DL CREATININE (test code = 2214) 0.76 MG/DL eGFR AMER. (test code 119 ML/MIN/1.73 = 85847) eGFR NON- AMER. (test 102 ML/MIN/1.73 code = 42208) CALC BUN/CREAT (test code = 18 RATIO 2235) SODIUM (test code = 2231) 138 MEQ/L POTASSIUM (test code = 2228) 4.4 MEQ/L CHLORIDE (test code = 2215) 103 MEQ/L CARBON DIOXIDE (test code = 24 MEQ/L 2205) CALCIUM (test code = 2209) 8.5 MG/DL PROTEIN, TOTAL (test code = 6.5 G/DL 2228) ALBUMIN (test code = 2201) 4.2 G/DL CALC GLOBULIN (test code = 2.3 G/DL 2240) CALC A/G RATIO (test code = 1.8 RATIO 2234) BILIRUBIN, TOTAL (test code = 0.3 MG/DL 7) ALKALINE PHOSPHATASE (test 48 U/L code = 2204) AST (test code = 2218) 31 U/L ALT (test code = 2219) 30 U/L [id number] 00:00:00 Test Item Value Reference Range Interpretation Comments TSH, THIRD GENERATION (test code 1.530 UIU/ML = 2821) [id number] 00:00:00 Test Item Value Reference Range Interpretation Comments TSH, THIRD GENERATION (test code 1.530 UIU/ML = 2821) [id number] 00:00:00 Test Item Value Reference Range Interpretation Comments TSH, THIRD GENERATION (test code 1.530 UIU/ML = 2821) CBC W/AUTO [id number] 00:00:00 Test Item Value Reference Range Interpretation Comments WBC (test code = 1001) 8.7 K/UL RBC (test code = 1002) 5.07 M/UL HEMOGLOBIN (test code = 1003) 14.8 G/DL HEMATOCRIT (test code = 1004) 44.4 % MCV (test code = 1005) 87.6 fL MCH (test code = 1006) 29.2 PG MCHC (test code = 1007) 33.3 G/DL RDW (test code = 1038) 12.7 % NEUTROPHILS (test code = 1008) 63.7 % LYMPHOCYTES (test code = 1010) 27.4 % MONOCYTES (test code = 1011) 6.1 % EOSINOPHILS (test code = 1012) 1.9 % BASOPHILS (test code = 1013) 0.9 % PLATELET COUNT (test code = 1015) 365 K/UL CBC W/AUTO [id number] 00:00:00 Test Item Value Reference Range Interpretation Comments WBC (test code = 1001) 8.7 K/UL RBC (test code = 1002) 5.07 M/UL HEMOGLOBIN (test code = 1003) 14.8 G/DL HEMATOCRIT (test code = 1004) 44.4 % MCV (test code = 1005) 87.6 fL MCH (test code = 1006) 29.2 PG MCHC (test code = 1007) 33.3 G/DL RDW (test code = 1038) 12.7 % NEUTROPHILS (test code = 1008) 63.7 % LYMPHOCYTES (test code = 1010) 27.4 % MONOCYTES (test code = 1011) 6.1 % EOSINOPHILS (test code = 1012) 1.9 % BASOPHILS (test code = 1013) 0.9 % PLATELET COUNT (test code = 1015) 365 K/UL COMPREHENSIVE METABOLIC [id number] 00:00:00 Test Item Value Reference Range Interpretation Comments GLUCOSE (test code = 2217) 82 MG/DL BUN (test code = 2208) 11 MG/DL CREATININE (test code = 2214) 0.84 MG/DL eGFR AMER. (test code 105 ML/MIN/1.73 = 57290) eGFR NON- AMER. (test 91 ML/MIN/1.73 code = 93303) CALC BUN/CREAT (test code = 13 RATIO 2234) SODIUM (test code = 2231) 139 MEQ/L POTASSIUM (test code = 2228) 4.4 MEQ/L CHLORIDE (test code = 2215) 104 MEQ/L CARBON DIOXIDE (test code = 21 MEQ/L 2205) CALCIUM (test code = 2209) 10.2 MG/DL PROTEIN, TOTAL (test code = 7.6 G/DL 2228) ALBUMIN (test code = 2201) 4.9 G/DL CALC GLOBULIN (test code = 2.7 G/DL 2239) CALC A/G RATIO (test code = 1.8 RATIO 2233) BILIRUBIN, TOTAL (test code = 0.5 MG/DL 2206) ALKALINE PHOSPHATASE (test 55 U/L code = 2204) AST (test code = 2218) 17 U/L ALT (test code = 2219) 14 U/L [id number] 00:00:00 Test Item Value Reference Range Interpretation Comments TSH, THIRD GENERATION (test code 2.010 UIU/ML = 2821) [id number] 00:00:00 Test Item Value Reference Range Interpretation Comments TSH, THIRD GENERATION (test code 2.010 UIU/ML = 2821) CBC W/AUTO [id number] 00:00:00 Test Item Value Reference Range Interpretation Comments WBC (test code = 1001) 8.7 K/UL RBC (test code = 1002) 5.07 M/UL HEMOGLOBIN (test code = 1003) 14.8 G/DL HEMATOCRIT (test code = 1004) 44.4 % MCV (test code = 1005) 87.6 fL MCH (test code = 1006) 29.2 PG MCHC (test code = 1007) 33.3 G/DL RDW (test code = 1038) 12.7 % NEUTROPHILS (test code = 1008) 63.7 % LYMPHOCYTES (test code = 1010) 27.4 % MONOCYTES (test code = 1011) 6.1 % EOSINOPHILS (test code = 1012) 1.9 % BASOPHILS (test code = 1013) 0.9 % PLATELET COUNT (test code = 1015) 365 K/UL CBC W/AUTO [id number] 00:00:00 Test Item Value Reference Range Interpretation Comments WBC (test code = 1001) 8.7 K/UL RBC (test code = 1002) 5.07 M/UL HEMOGLOBIN (test code = 1003) 14.8 G/DL HEMATOCRIT (test code = 1004) 44.4 % MCV (test code = 1005) 87.6 fL MCH (test code = 1006) 29.2 PG MCHC (test code = 1007) 33.3 G/DL RDW (test code = 1038) 12.7 % NEUTROPHILS (test code = 1008) 63.7 % LYMPHOCYTES (test code = 1010) 27.4 % MONOCYTES (test code = 1011) 6.1 % EOSINOPHILS (test code = 1012) 1.9 % BASOPHILS (test code = 1013) 0.9 % PLATELET COUNT (test code = 1015) 365 K/UL CBC W/AUTO [id number] 00:00:00 Test Item Value Reference Range Interpretation Comments WBC (test code = 1001) 8.7 K/UL RBC (test code = 1002) 5.07 M/UL HEMOGLOBIN (test code = 1003) 14.8 G/DL HEMATOCRIT (test code = 1004) 44.4 % MCV (test code = 1005) 87.6 fL MCH (test code = 1006) 29.2 PG MCHC (test code = 1007) 33.3 G/DL RDW (test code = 1038) 12.7 % NEUTROPHILS (test code = 1008) 63.7 % LYMPHOCYTES (test code = 1010) 27.4 % MONOCYTES (test code = 1011) 6.1 % EOSINOPHILS (test code = 1012) 1.9 % BASOPHILS (test code = 1013) 0.9 % PLATELET COUNT (test code = 1015) 365 K/UL COMPREHENSIVE METABOLIC [id number] 00:00:00 Test Item Value Reference Range Interpretation Comments GLUCOSE (test code = 2217) 82 MG/DL BUN (test code = 2208) 11 MG/DL CREATININE (test code = 2214) 0.84 MG/DL eGFR AMER. (test code 105 ML/MIN/1.73 = 99360) eGFR NON- AMER. (test 91 ML/MIN/1.73 code = 88143) CALC BUN/CREAT (test code = 13 RATIO 2235) SODIUM (test code = 2231) 139 MEQ/L POTASSIUM (test code = 2228) 4.4 MEQ/L CHLORIDE (test code = 2215) 104 MEQ/L CARBON DIOXIDE (test code = 21 MEQ/L 220) CALCIUM (test code = 2209) 10.2 MG/DL PROTEIN, TOTAL (test code = 7.6 G/DL 222) ALBUMIN (test code = 2201) 4.9 G/DL CALC GLOBULIN (test code = 2.7 G/DL 2240) CALC A/G RATIO (test code = 1.8 RATIO 2234) BILIRUBIN, TOTAL (test code = 0.5 MG/DL 2206) ALKALINE PHOSPHATASE (test 55 U/L code = 2204) AST (test code = 2218) 17 U/L ALT (test code = 2219) 14 U/L COMPREHENSIVE METABOLIC [id number] 00:00:00 Test Item Value Reference Range Interpretation Comments GLUCOSE (test code = 2217) 82 MG/DL BUN (test code = 2208) 11 MG/DL CREATININE (test code = 2214) 0.84 MG/DL eGFR AMER. (test code 105 ML/MIN/1.73 = 59990) eGFR NON- AMER. (test 91 ML/MIN/1.73 code = 71635) CALC BUN/CREAT (test code = 13 RATIO 2235) SODIUM (test code = 2231) 139 MEQ/L POTASSIUM (test code = 2228) 4.4 MEQ/L CHLORIDE (test code = 2215) 104 MEQ/L CARBON DIOXIDE (test code = 21 MEQ/L 2205) CALCIUM (test code = 2209) 10.2 MG/DL PROTEIN, TOTAL (test code = 7.6 G/DL 2228) ALBUMIN (test code = 2201) 4.9 G/DL CALC GLOBULIN (test code = 2.7 G/DL 2240) CALC A/G RATIO (test code = 1.8 RATIO 2234) BILIRUBIN, TOTAL (test code = 0.5 MG/DL 2206) ALKALINE PHOSPHATASE (test 55 U/L code = 2204) AST (test code = 2218) 17 U/L ALT (test code = 2219) 14 U/L [id number] 00:00:00 Test Item Value Reference Range Interpretation Comments TSH, THIRD GENERATION (test code 2.010 UIU/ML = 2821) [id number] 00:00:00 Test Item Value Reference Range Interpretation Comments TSH, THIRD GENERATION (test code 2.010 UIU/ML = 2821) [id number] 00:00:00 Test Item Value Reference Range Interpretation Comments TSH, THIRD GENERATION (test code 2.010 UIU/ML = 2821) PAP TEST, THINPREP, [id number] 00:00:00 Test Item Value Reference Range Interpretation Comments SOURCE: (test code = A) Endocervical 8001) SLIDES: (test code = 1 8011) LMP: (test code = 2016-04-07 80) SPECIMEN ADEQUACY: (NOTE) (test code = 53012) INTERPRETATION: (test NO EPITHELIAL code = 84662) ABNORMALITY SEE BELOW CONTACT AGENT: AKOSUA Barrios(ASCP) (test code = 8101) LOCATION: (test code (NOTE) = 65952) CPT: (test code = (NOTE) 8140) HPV HIGH RISK WITH GENOTYPE, [id number] 00:00:00 Test Item Value Reference Range Interpretation Comments HPV HIGH RISK INTERP (test code = NEGATIVE 45637) HPV 16 (test code = 23598) NEGATIVE HPV 18 (test code = 78382) NEGATIVE HPV, HR, OTHER GENOTYPES (test code NEGATIVE = 04421) PAP TEST, THINPREP, [id number] 00:00:00 Test Item Value Reference Range Interpretation Comments SOURCE: (test code = A) Endocervical 800) SLIDES: (test code = 1 8011) LMP: (test code = 2016-04-07 8021) SPECIMEN ADEQUACY: (NOTE) (test code = 95670) INTERPRETATION: (test NO EPITHELIAL code = 07060) ABNORMALITY SEE BELOW CONTACT AGENT: AKOSUA Barrios(ASCP) (test code = 8101) LOCATION: (test code (NOTE) = 63395) CPT: (test code = (NOTE) 8140) PAP TEST, THINPREP, [id number] 00:00:00 Test Item Value Reference Range Interpretation Comments SOURCE: (test code = A) Endocervical 8001) SLIDES: (test code = 1 8011) LMP: (test code = 2016-04-07 8021) SPECIMEN ADEQUACY: (NOTE) (test code = 85390) INTERPRETATION: (test NO EPITHELIAL code = 63288) ABNORMALITY SEE BELOW CONTACT AGENT: AKOSUA Barrios(ASCP) (test code = 8101) LOCATION: (test code (NOTE) = 86924) CPT: (test code = (NOTE) 8140) HPV HIGH RISK WITH GENOTYPE, [id number] 00:00:00 Test Item Value Reference Range Interpretation Comments HPV HIGH RISK INTERP (test code = NEGATIVE 36244) HPV 16 (test code = 32486) NEGATIVE HPV 18 (test code = 15764) NEGATIVE HPV, HR, OTHER GENOTYPES (test code NEGATIVE = 77302) HPV HIGH RISK WITH GENOTYPE, [id number] 00:00:00 Test Item Value Reference Range Interpretation Comments HPV HIGH RISK INTERP (test code = NEGATIVE 55975) HPV 16 (test code = 21228) NEGATIVE HPV 18 (test code = 93093) NEGATIVE HPV, HR, OTHER GENOTYPES (test code NEGATIVE = 57652) CBC W/AUTO [id number] 00:00:00 Test Item Value Reference Range Interpretation Comments WBC (test code = 1001) 7.6 K/UL RBC (test code = 1002) 4.73 M/UL HEMOGLOBIN (test code = 1003) 13.7 G/DL HEMATOCRIT (test code = 1004) 40.7 % MCV (test code = 1005) 86.0 fL MCH (test code = 1006) 29.0 PG MCHC (test code = 1007) 33.7 G/DL RDW (test code = 1038) 13.8 % NEUTROPHILS (test code = 1008) 58 % LYMPHOCYTES (test code = 1010) 32 % MONOCYTES (test code = 1011) 7 % EOSINOPHILS (test code = 1012) 2 % BASOPHILS (test code = 1013) 1 % PLATELET COUNT (test code = 1015) 380 K/UL CBC W/AUTO [id number] 00:00:00 Test Item Value Reference Range Interpretation Comments WBC (test code = 1001) 7.6 K/UL RBC (test code = 1002) 4.73 M/UL HEMOGLOBIN (test code = 1003) 13.7 G/DL HEMATOCRIT (test code = 1004) 40.7 % MCV (test code = 1005) 86.0 fL MCH (test code = 1006) 29.0 PG MCHC (test code = 1007) 33.7 G/DL RDW (test code = 1038) 13.8 % NEUTROPHILS (test code = 1008) 58 % LYMPHOCYTES (test code = 1010) 32 % MONOCYTES (test code = 1011) 7 % EOSINOPHILS (test code = 1012) 2 % BASOPHILS (test code = 1013) 1 % PLATELET COUNT (test code = 1015) 380 K/UL COMPREHENSIVE METABOLIC [id number] 00:00:00 Test Item Value Reference Range Interpretation Comments GLUCOSE (test code = 2217) 63 MG/DL BUN (test code = 2208) 12 MG/DL CREATININE (test code = 2214) 0.9 MG/DL eGFR AMER. (test code 89 ML/MIN/1.73 = 81767) eGFR NON- AMER. (test 74 ML/MIN/1.73 code = 57205) CALCULATED BUN/CREAT (test 13 RATIO code = 2235) SODIUM (test code = 2231) 139 MEQ/L POTASSIUM (test code = 2228) 4.3 MEQ/L CHLORIDE (test code = 2215) 110 MEQ/L CARBON DIOXIDE (test code = 23 MEQ/L 2206) CALCIUM (test code = 2209) 9.0 MG/DL PROTEIN, TOTAL (test code = 7.2 G/DL 2228) ALBUMIN (test code = 2201) 4.0 G/DL CALCULATED GLOBULIN (test code 3.2 G/DL = 2240) CALCULATED A/G RATIO (test 1.3 RATIO code = 2234) BILIRUBIN, TOTAL (test code = 0.4 MG/DL 2206) ALKALINE PHOSPHATASE (test 50 U/L code = 2204) SGOT (AST) (test code = 2218) 16 U/L SGPT (ALT) (test code = 2219) 14 U/L CBC W/AUTO [id number] 00:00:00 Test Item Value Reference Range Interpretation Comments WBC (test code = 1001) 7.6 K/UL RBC (test code = 1002) 4.73 M/UL HEMOGLOBIN (test code = 1003) 13.7 G/DL HEMATOCRIT (test code = 1004) 40.7 % MCV (test code = 1005) 86.0 fL MCH (test code = 1006) 29.0 PG MCHC (test code = 1007) 33.7 G/DL RDW (test code = 1038) 13.8 % NEUTROPHILS (test code = 1008) 58 % LYMPHOCYTES (test code = 1010) 32 % MONOCYTES (test code = 1011) 7 % EOSINOPHILS (test code = 1012) 2 % BASOPHILS (test code = 1013) 1 % PLATELET COUNT (test code = 1015) 380 K/UL CBC W/AUTO [id number] 00:00:00 Test Item Value Reference Range Interpretation Comments WBC (test code = 1001) 7.6 K/UL RBC (test code = 1002) 4.73 M/UL HEMOGLOBIN (test code = 1003) 13.7 G/DL HEMATOCRIT (test code = 1004) 40.7 % MCV (test code = 1005) 86.0 fL MCH (test code = 1006) 29.0 PG MCHC (test code = 1007) 33.7 G/DL RDW (test code = 1038) 13.8 % NEUTROPHILS (test code = 1008) 58 % LYMPHOCYTES (test code = 1010) 32 % MONOCYTES (test code = 1011) 7 % EOSINOPHILS (test code = 1012) 2 % BASOPHILS (test code = 1013) 1 % PLATELET COUNT (test code = 1015) 380 K/UL CBC W/AUTO [id number] 00:00:00 Test Item Value Reference Range Interpretation Comments WBC (test code = 1001) 7.6 K/UL RBC (test code = 1002) 4.73 M/UL HEMOGLOBIN (test code = 1003) 13.7 G/DL HEMATOCRIT (test code = 1004) 40.7 % MCV (test code = 1005) 86.0 fL MCH (test code = 1006) 29.0 PG MCHC (test code = 1007) 33.7 G/DL RDW (test code = 1038) 13.8 % NEUTROPHILS (test code = 1008) 58 % LYMPHOCYTES (test code = 1010) 32 % MONOCYTES (test code = 1011) 7 % EOSINOPHILS (test code = 1012) 2 % BASOPHILS (test code = 1013) 1 % PLATELET COUNT (test code = 1015) 380 K/UL COMPREHENSIVE METABOLIC [id number] 00:00:00 Test Item Value Reference Range Interpretation Comments GLUCOSE (test code = 2217) 63 MG/DL BUN (test code = 2208) 12 MG/DL CREATININE (test code = 2214) 0.9 MG/DL eGFR AMER. (test code 89 ML/MIN/1.73 = 67773) eGFR NON- AMER. (test 74 ML/MIN/1.73 code = 53707) CALCULATED BUN/CREAT (test 13 RATIO code = 2235) SODIUM (test code = 2231) 139 MEQ/L POTASSIUM (test code = 2228) 4.3 MEQ/L CHLORIDE (test code = 2215) 110 MEQ/L CARBON DIOXIDE (test code = 23 MEQ/L 220) CALCIUM (test code = 2209) 9.0 MG/DL PROTEIN, TOTAL (test code = 7.2 G/DL 2228) ALBUMIN (test code = 2201) 4.0 G/DL CALCULATED GLOBULIN (test code 3.2 G/DL = 2240) CALCULATED A/G RATIO (test 1.3 RATIO code = 2234) BILIRUBIN, TOTAL (test code = 0.4 MG/DL 2206) ALKALINE PHOSPHATASE (test 50 U/L code = 2204) SGOT (AST) (test code = 2218) 16 U/L SGPT (ALT) (test code = 2219) 14 U/L COMPREHENSIVE METABOLIC [id number] 00:00:00 Test Item Value Reference Range Interpretation Comments GLUCOSE (test code = 2217) 63 MG/DL BUN (test code = 2208) 12 MG/DL CREATININE (test code = 2214) 0.9 MG/DL eGFR AMER. (test code 89 ML/MIN/1.73 = 42692) eGFR NON- AMER. (test 74 ML/MIN/1.73 code = 13768) CALCULATED BUN/CREAT (test 13 RATIO code = 2235) SODIUM (test code = 2231) 139 MEQ/L POTASSIUM (test code = 2228) 4.3 MEQ/L CHLORIDE (test code = 2215) 110 MEQ/L CARBON DIOXIDE (test code = 23 MEQ/L 2206) CALCIUM (test code = 2209) 9.0 MG/DL PROTEIN, TOTAL (test code = 7.2 G/DL 2228) ALBUMIN (test code = 2201) 4.0 G/DL CALCULATED GLOBULIN (test code 3.2 G/DL = 2240) CALCULATED A/G RATIO (test 1.3 RATIO code = 2234) BILIRUBIN, TOTAL (test code = 0.4 MG/DL 2206) ALKALINE PHOSPHATASE (test 50 U/L code = 2203) SGOT (AST) (test code = 2218) 16 U/L SGPT (ALT) (test code = 2219) 14 U/L
[2022-08-29] MEDS ORDERED: IPRATROPIUM BROM 0.5MG/2.5ML ONE (17:32)
[2022-08-29] MEDS ORDERED: ALBUTEROL 2.5 MG/3 ML NEB SOL ONE (17:32)
[2022-08-29 17:55] LABS: SARS-COV-2 RT PCR NEGATIVE (NEGATIVE)
--- NOTE | 2022-08-29 18:26 | ER ---
Nurse's Notes [facility] Name: Josefa aMier Age: 37 yrs Sex: Female : 1985 Arrival Date: 08/29/2022 Time: 16:39 Bed 10 Private MD: Diagnosis: Influenza due to identified novel influenza A virus Presentation: 08/29 16:44 Chief complaint: Patient states: i have a real bad cough and its messing with my 5 asthma; started a couple days ago, with chills. Coronavirus screen: Vaccine status: Patient reports being unvaccinated. Client denies travel out of the [place] in the last 14 days. Ebola Screen: Patient negative for fever greater than or equal to 101.5 degrees Fahrenheit, and additional compatible Ebola Virus Disease symptoms Patient denies exposure to infectious person. Patient denies travel to an Ebola-affected area in the 21 days before illness onset. Initial Sepsis Screen: Does the patient meet any 2 criteria? No. Patient's initial sepsis screen is negative. Does the patient have a suspected source of infection? No. Patient's initial sepsis screen is negative. Risk Assessment: Do you want to hurt yourself or someone else? Patient reports no desire to harm self or others. 16:44 Method Of Arrival: Ambulatory [facility] 16:44 Acuity: DEEPIKA 4 [facility] Triage Assessment: 16:46 General: Appears in no apparent distress. uncomfortable, Behavior is calm, cooperative, [facility] appropriate for age. Pain: Denies pain. [employer]: 16:46 LMP 08/28/2022 [facility] Historical: - Allergies: 16:46 NKA; [facility] - PMHx: 16:46 Anxiety; Asthma; Bipolar disorder; Depression; GERD; Hyperlipidemia; [facility] - PSHx: 16:46 Ligation of fallopian tube; [facility] - Immunization history:: Adult Immunizations up to date. - Social history:: Smoking status: Patient reports the use of cigarette tobacco products, smokes one pack cigarettes per day. Screenin:33 Abuse screen: Denies threats or abuse. Denies injuries from another. Nutritional ld1 screening: No deficits noted. Tuberculosis screening: No symptoms or risk factors identified. Fall Risk No fall in past 12 months (0 pts). Assessment: 18:15 Reassessment: Patient appears in no apparent distress at this time. No changes from ld1 previously documented assessment. Patient and/or family updated on plan of care and expected duration. Pain level reassessed. Patient is alert, oriented x 3, equal unlabored respirations, skin warm/dry/pink. See triage assessment. 18:33 Reassessment: Patient appears in no apparent distress at this time. Patient and/or ld1 family updated on plan of care and expected duration. Pain level reassessed. Patient is alert, oriented x 3, equal unlabored respirations, skin warm/dry/pink. Vital Signs: 16:44 BP 148 / 87; Pulse 95; Resp 20; Pulse Ox 96% ; Weight 68.04 kg; Height 5 ft. 1 in. [facility] (154.94 cm); 18:15 BP 139 / 77; Pulse 97; Resp 18; Pulse Ox 97% on R/A; ld1 16:44 Body Mass Index 28.34 (68.04 kg, 154.94 cm) [facility] ED Course: 16:39 Patient arrived in ED. am2 16:42 Teresa Lou FNP-C is PHCP. kb 16:42 Segundo Lott DO is Attending Physician. kb 16:46 Triage completed. [facility] 16:46 Arm band placed on right wrist. [facility] 16:53 COVID-19/FLU A+B Sent. ld1 17:26 Mee Gipson, RN is Primary Nurse. ld1 18:33 Patient has correct armband on for positive identification. Placed in gown. Bed in low ld1 position. Call light in reach. Side rails up X2. Pulse ox on. NIBP on. Door closed. Noise minimized. 18:33 No provider procedures requiring assistance completed. Patient did not have IV access ld1 during this emergency room visit. Administered Medications: 17:41 Drug: AtroVENT (ipratropium) Aerosol 0.5 mg Route: Inhalation; ld1 17:41 Drug: Albuterol 2.5 mg Route: Inhalation; ld1 Medication: 18:33 VIS not applicable for this client. ld1 Outcome: 18:26 Discharge ordered by . kb 18:33 Discharged to home ambulatory. ld1 18:33 Condition: stable 18:33 Discharge instructions given to patient, Instructed on discharge instructions, follow up and referral plans. Demonstrated understanding of instructions, follow-up care. 18:34 Patient left the ED. ld1 Signatures: Teresa Lou, [employer]-Nicole Sanchez am2 Mee Gipson RN RN ld1 Allyson Nguyen RN RN jh5 Corrections: (The following items were deleted from the chart) 16:47 16:44 BP 143 / 104; Pulse 95bpm; Resp 20bpm; Pulse Ox 96%; 68.04 kg; Height 5 ft. 1 jh5 in.; BMI: 28.3; jh5
--- NOTE | 2022-08-29 18:27 | EDPHYS ---
Physician Documentation [facility] Name: Josefa Maier Age: 37 yrs Sex: Female : 1985 Arrival Date: 08/29/2022 Time: 16:39 Bed 10 Private MD: ED Physician Segundo Lott HPI: 08/29 18:25 This 37 yrs old Female presents to ER via Ambulatory with complaints of Asthma kb Exacerbation, Cough. 18:25 The patient presents to the emergency department with wheezing, Current therapy: kb albuterol inhaler. Onset: The symptoms/episode began/occurred 3 day(s) ago. Modifying factors: The symptoms are alleviated by nothing, the symptoms are aggravated by nothing. Associated signs and symptoms: The patient has no apparent associated signs or symptoms. Severity of symptoms: At their worst the symptoms were moderate in the emergency department the symptoms are unchanged. The patient has experienced similar episodes in the past. The patient has not recently seen a physician. "I've had a cough for a few days and it is messing with my asthma." reports chills and shortness of breath. 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 - Social history:: Smoking status: Patient reports the use of cigarette tobacco products, smokes one pack cigarettes per day. ROS: 18:19 Constitutional: Negative for fever, chills, and weight loss. kb 18:19 Respiratory: Positive for cough, wheezing. 18:19 All other systems are negative. Exam: 18:19 Constitutional: This is a well developed, well nourished patient who is awake, alert, kb and in no acute distress. Head/Face: Normocephalic, atraumatic. ENT: Moist Mucous membranes Cardiovascular: Regular rate and rhythm with a normal S1 and S2. No gallops, murmurs, or rubs. No pulse deficits. Respiratory: Respirations even and unlabored. No increased work of breathing. Talking in full sentences Abdomen/GI: Soft, non-tender. No distention Skin: Warm, dry with normal turgor. Normal color. MS/ Extremity: Pulses equal, no cyanosis. Neurovascular intact. Full, normal range of motion. Neuro: Awake and alert, GCS 15, oriented to person, place, time, and situation. Moves all extremities. Normal gait. Psych: Awake, alert, with orientation to person, place and time. Behavior, mood, and affect are within normal limits. Vital Signs: 16:44 BP 148 / 87; Pulse 95; Resp 20; Pulse Ox 96% ; Weight 68.04 kg; Height 5 ft. 1 in. jh5 (154.94 cm); 18:15 BP 139 / 77; Pulse 97; Resp 18; Pulse Ox 97% on R/A; ld1 16:44 Body Mass Index 28.34 (68.04 kg, 154.94 cm) jh5 MDM: 16:47 Patient medically screened. kb 18:19 Data reviewed: vital signs, nurses notes. Data interpreted: Pulse oximetry: on room air kb is 97 %. Interpretation: normal. Counseling: I had a detailed discussion with the patient and/or guardian regarding: the historical points, exam findings, and any diagnostic results supporting the discharge/admit diagnosis, lab results, the need for outpatient follow up, a family practitioner, to return to the emergency department if symptoms worsen or persist or if there are any questions or concerns that arise at home. 08/29 16:48 Order name: COVID-19/FLU A+B; Complete Time: 18:19 kb Administered Medications: 17:41 Drug: AtroVENT (ipratropium) Aerosol 0.5 mg Route: Inhalation; ld1 17:41 Drug: Albuterol 2.5 mg Route: Inhalation; ld1 Disposition: 18:49 Co-signature as Attending Physician, Segundo MELENDEZ was immediately available onsite ms3 in the emergency department for consultation in the care of the patient. Disposition Summary: 08/29/22 18:26 Discharge Ordered Location: Home kb Condition: Stable kb Diagnosis - Influenza due to identified novel influenza A virus kb Followup: kb - With: Emergency Department - When: As needed - Reason: Worsening of condition Followup: kb - With: Private Physician - When: 2 - 3 days - Reason: Recheck today's complaints, Continuance of care, Re-evaluation by your physician Discharge Instructions: - Discharge Summary Sheet kb - Influenza, Pediatric, [id number] kb Forms: - Medication Reconciliation Form kb - Thank You Letter kb - Antibiotic Education kb - Prescription Opioid Use kb Signatures: Dispatcher [employer] EDTeresa Strickland, AUDREY [place]-Segundo Anthony, DO JONES ms3 Mee Gipson, RN RN ld1 Allyson Nguyen RN RN jh5
[2022-08-29 18:48] VITALS: BP 139/77; O2SAT 97
== END 2022-08-29 18:34 | disposition home or self-care (01) ==
LOC: ER 16:29
DX: J10.1 Influenza due to other identified influenza virus with other respiratory manifestations (principal); J45.909 Unspecified asthma, uncomplicated; F17.210 Nicotine dependence, cigarettes, uncomplicated; Z20.822 Contact with and (suspected) exposure to COVID-19
CPT/HCPCS: 0240U; J7613; J7644; 99284